=== PATIENT | male | born 1990 | race American Indian/Alaskan Native ===

== ENCOUNTER 2017-01-25 23:19 | Emergency (ER) | payer SELFPAY ==
[2017-01-26 00:25] LABS: Basophils % (Auto) 0.2 % (0.0-1.8); Eosinophils % (Auto) 0.7 % (0.0-4.3); Hematocrit 45.9 % (35.5-45.6); Hemoglobin 15.1 gm/dl (11.8-15.2); Mean Corpuscular HGB Conc 33 % (32-34); Mean Corpuscular Hemoglobin 29 pg (28-32); Mean Corpuscular Volume 89 fl (84-94); Platelet Count 192 K/mm3 (140-440); Red Blood Count 5.18 M/mm3 (3.65-5.03); Red Cell Distribution Width 13.8 % (13.2-15.2); White Blood Count 7.4 K/mm3 (4.5-11.0)
[2017-01-26 00:44] LABS: Anion Gap 20 mmol/L; BUN/Creatinine Ratio 9; Blood Urea Nitrogen 10 mg/dL (9-20); Calcium 9.4 mg/dL (8.4-10.2); Carbon Dioxide 22 mmol/L (22-30); Chloride 103.1 mmol/L (98-107); Glucose 117 mg/dL (75-100); Potassium 3.7 mmol/L (3.6-5.0); Sodium 141 mmol/L (137-145)
[2017-01-26 02:28] LABS: Urine Drugs of Abuse Note Disclamer
[2017-01-26 02:40] LABS: Bilirubin,Urine NEG (Negative); Blood,Urine NEG (Negative); Ketones,Urine TR mg/dL (Negative); Leukocyte Esterase,Urine NEG (Negative); Mucus,Urine 3+ /HPF; Nitrite,Urine NEG (Negative); Urobilinogen,Urine < 2.0 mg/dL (<2.0)
--- NOTE | 2017-01-26 04:04 | Emergency Department Report ---
ED General Adult HPI - General Chief complaint: Psych Stated complaint: MEDICAL CLEAR. Time Seen by Provider: 01/26/17 04:00 Source: patient Mode of arrival: Ambulatory Limitations: No Limitations - History of Present Illness Initial comments: Patient is a 27-year-old male that presents to emergency room with left shoulder pain for 4 days. Patient denies falling or trauma.. Patient states he cannot lift his arm above his head. Pain is worse with movement and better with rest. Pain with movement is is a 10 out of 10. Pain while resting is a 2 out of 10.. -: Sudden, days(s) (4 days ago) Location: upper extremity Radiation: non-radiation Severity scale (0 -10): 0 Quality: aching Consistency: constant Improves with: rest Worsens with: movement Associated Symptoms: denies other symptoms Treatments Prior to Arrival: none - Related Data Previous Rx's Medication Instructions Recorded Last Taken Type Ibuprofen [Motrin 800 MG tab] 800 mg PO Q8H PRN #14 tablet 12/31/13 Unknown Rx traMADol [Ultram 50 MG tab] 50 mg PO Q6HR PRN #14 tablet 01/26/17 Unknown Rx Allergies Allergy/AdvReac Type Severity Reaction Status Date / Time No Known Allergies Allergy Unverified 01/21/13 22:39 ED Review of Systems ROS: Stated complaint: MEDICAL CLEAR. Other details as noted in HPI Comment: All other systems reviewed and negative Constitutional: denies: chills, fever Eyes: denies: eye pain, eye discharge, vision change ENT: denies: ear pain, throat pain Respiratory: denies: cough, shortness of breath, wheezing Cardiovascular: denies: chest pain, palpitations Endocrine: no symptoms reported Gastrointestinal: denies: abdominal pain, nausea, diarrhea Genitourinary: denies: urgency, dysuria Musculoskeletal: denies: back pain, joint swelling, arthralgia Skin: denies: rash, lesions Neurological: denies: headache, weakness, paresthesias Psychiatric: depression. denies: anxiety Hematological/Lymphatic: denies: easy bleeding, easy bruising ED Past Medical Hx - Past Medical History Hx Hypertension: No Hx CVA: No Hx Heart Attack/AMI: No Hx Congestive Heart Failure: No Hx Diabetes: No Hx Deep Vein Thrombosis: No Hx Pulmonary Embolism: No Hx GERD: No Hx Liver Disease: No Hx Renal Disease: No Hx Sickle Cell Disease: No Hx Arthritis: No Hx Headaches / Migraines: No Hx Seizures: No Hx Kidney Stones: No Hx Psychiatric Treatment: No Hx Asthma: No Hx COPD: No Hx Tuberculosis: No Hx Dementia: No Hx HIV: No - Surgical History Hx Coronary Stent: No Hx Open Heart Surgery: No Hx Pacemaker: No Hx Internal Defibrillator: No Hx Cholecystectomy: No Hx Appendectomy: No Hx Breast Surgery: No Additional Surgical History: right thumb surgery - Family History Family history: no significant - Social History Smoking Status: Never Smoker Substance Use Type: Marijuana - Medications Home Medications: Home Medications Medication Instructions Recorded Confirmed Last Taken Type Ibuprofen [Motrin 800 MG tab] 800 mg PO Q8H PRN #14 tablet 12/31/13 Unknown Rx traMADol [Ultram 50 MG tab] 50 mg PO Q6HR PRN #14 tablet 01/26/17 Unknown Rx ED Physical Exam - General Limitations: No Limitations General appearance: alert, in no apparent distress - Head Head exam: Present: atraumatic, normocephalic - Eye Eye exam: Present: normal appearance - ENT ENT exam: Present: mucous membranes moist - Neck Neck exam: Present: normal inspection - Respiratory Respiratory exam: Present: normal lung sounds bilaterally. Absent: respiratory distress - Cardiovascular Cardiovascular Exam: Present: regular rate, normal rhythm. Absent: systolic murmur, diastolic murmur, rubs, gallop - GI/Abdominal GI/Abdominal exam: Present: soft, normal bowel sounds - Rectal Rectal exam: Present: deferred - Extremities Exam Extremities exam: Present: normal inspection, other (tenderness to palpation over anterior left shoulder. Decreased range of motion due to pain. ) - Back Exam Back exam: Present: normal inspection - Neurological Exam Neurological exam: Present: alert, oriented X3 - Psychiatric Psychiatric exam: Present: normal affect, normal mood - Skin Skin exam: Present: warm, dry, intact, normal color. Absent: rash ED Course Vital Signs 01/25/17 01/26/17 01/26/17 23:28 01:34 01:35 Temperature 98.4 F 98 F Pulse Rate 62 66 Respiratory 18 18 18 Rate Blood Pressure 110/74 Blood Pressure 112/70 [Left] O2 Sat by Pulse 99 100 100 Oximetry ED Medical Decision Making - Lab Data Result diagrams: 01/26/17 00:07 01/26/17 00:07 - Radiology Data Radiology results: report reviewed No acute findings on left shoulder x-ray - Differential Diagnosis SHOULDER SPRAIN. LIGAMENT INJURY Critical care attestation.: If time is entered above; I have spent that time in minutes in the direct care of this critically ill patient, excluding procedure time. ED Disposition Clinical Impression: Shoulder pain, left, Sprain of shoulder, left Disposition: TO HOME OR SELFCARE Is pt being admited?: No Does the pt Need Aspirin: No Condition: Stable Instructions: Shoulder Sprain (ED) Additional Instructions: Patient to follow up with primary care and orthopedic in 3 - 5 days. To return to ER if condition worsens. Patient take Tylenol and ibuprofen when necessary for pain. Rest and RICE Prescriptions: traMADol [Ultram 50 MG tab] 50 mg PO Q6HR PRN #14 tablet PRN Reason: Pain Referrals: COOPER MEIER MD [Primary Care Provider] - 3-5 Days Time of Disposition: 05:37
--- NOTE | 2017-01-26 05:05 | XRay Report ---
FINAL REPORT EXAM: XR SHOULDER 2+V LT HISTORY: pain COMPARISONS: None. FINDINGS: 3 views left shoulder Left glenohumeral joint appears intact. Acromioclavicular and coracoclavicular intervals are within normal limits. No displaced fracture. Incomplete evaluation of the adjacent left lung is unremarkable. IMPRESSION: Unremarkable left shoulder radiographs.
[2017-01-26] MEDS ORDERED: TORADOL IV ONE (05:39)
[2017-01-26 06:10] VITALS: BP 114/62
== END 2017-01-26 06:22 | disposition home or self-care (01) ==
LOC: ED 23:19
DX: S43.402A Unspecified sprain of left shoulder joint, initial encounter (principal); F12.10 Cannabis abuse, uncomplicated; X58.XXXA Exposure to other specified factors, initial encounter; Y93.89 Activity, other specified; Y92.89 Other specified places as the place of occurrence of the external cause; Y99.8 Other external cause status
CPT/HCPCS: 36415; 73030; 80048; 80307; 81001; 85025; 99284; G0480; J1885; 80320

== ENCOUNTER 2017-01-27 09:19 | Emergency (ER) | payer SELFPAY ==
[2017-01-27 11:00] VITALS: BP 138/92
== END 2017-01-27 10:10 | disposition left against medical advice (07) ==
LOC: ED 09:19
DX: Z53.21 Procedure and treatment not carried out due to patient leaving prior to being seen by health care provider (principal)

== ENCOUNTER 2017-10-10 23:01 | Emergency (ER) | payer MEDICAID ==
[2017-10-11 00:06] VITALS: BP 98/63
[2017-10-11] MEDS ORDERED: ZOFRAN ODT PO ONE (00:07)
[2017-10-11 00:38] LABS: BUN/Creatinine Ratio 8; Blood Urea Nitrogen 9 mg/dL (9-20); Calcium 8.5 mg/dL (8.4-10.2); Hemolysis Index 28
--- NOTE | 2017-10-11 00:54 | XRay Report ---
FINAL REPORT EXAM: XR HAND 2V RT HISTORY: right middle finger injury TECHNIQUE: AP and lateral views of the right hand were obtained. FINDINGS: There is fusiform soft tissue swelling around the proximal interphalangeal joint of the middle finger. On the lateral view there is a localized radiolucency along the ventral margin of the base of the middle phalanx suggesting possibility of a localized cortical fracture. This area is not well seen because of overlapping bones. There are no additional fractures. The wrist joint is well maintained. IMPRESSION: Fusiform soft tissue swelling around the proximal interphalangeal joint of the middle finger. Questionable incomplete cortical fracture along the ventral margin of the base of the middle phalanx of middle finger seen partially on the lateral view. Additional imaging with the fingers spread out is recommended for definitive evaluation.
--- NOTE | 2017-10-11 04:13 | Emergency Department Report ---
ED Upper Extremity Inj HPI - General Chief Complaint: Extremity Injury, Upper Stated Complaint: INJURED RT HAND, VOMITING X4 DAYS Time Seen by Provider: 10/11/17 04:08 Source: patient Mode of arrival: Ambulatory Limitations: No Limitations - History of Present Illness Initial Comments: 27-year-old -[place] male presents to the emergency room for complaint of right middle finger injury times one and a half weeks ago while playing football. Patient reports that he is able to move his finger without difficulties. He has been taken [id number] Tylenol and ibuprofen for pain management. Patient also complains of vomiting daily for 4 days. Patient denies any abdominal pain no diarrhea no nausea. MD Complaint: Injury to:: right, finger -: week(s) (1.5) Other Extremity Injury: Fingers: Right (middle) Severity scale (0 -10): 7 - Related Data Previous Rx's Medication Instructions Recorded Last Taken Type Ibuprofen [Motrin 800 MG tab] 800 mg PO Q8H PRN #14 tablet 12/31/13 Unknown Rx traMADol [Ultram 50 MG tab] 50 mg PO Q6HR PRN #14 tablet 01/26/17 Unknown Rx Ibuprofen [Motrin 600 MG tab] 600 mg PO Q8H PRN #30 tablet 10/11/17 Unknown Rx Allergies Allergy/AdvReac Type Severity Reaction Status Date / Time No Known Allergies Allergy Unverified 01/21/13 22:39 ED Review of Systems ROS: Stated complaint: INJURED RT HAND, VOMITING X4 DAYS Other details as noted in HPI Eyes: denies: eye pain, eye discharge, vision change ENT: denies: ear pain, throat pain Respiratory: denies: cough, shortness of breath, wheezing Cardiovascular: denies: chest pain, palpitations Gastrointestinal: vomiting (QD 4 days). denies: abdominal pain, diarrhea, constipation Genitourinary: denies: urgency, dysuria Musculoskeletal: joint swelling (right middle finger), arthralgia (right middle finger). denies: back pain Skin: denies: rash, lesions Neurological: denies: headache, weakness, paresthesias Psychiatric: denies: anxiety, depression Hematological/Lymphatic: denies: easy bleeding, easy bruising ED Past Medical Hx - Past Medical History Previous Medical History?: No Hx Hypertension: No Hx CVA: No Hx Heart Attack/AMI: No Hx Congestive Heart Failure: No Hx Diabetes: No Hx Deep Vein Thrombosis: No Hx Pulmonary Embolism: No Hx GERD: No Hx Liver Disease: No Hx Renal Disease: No Hx Sickle Cell Disease: No Hx Arthritis: No Hx Headaches / Migraines: No Hx Seizures: No Hx Kidney Stones: No Hx Psychiatric Treatment: No Hx Asthma: No Hx COPD: No Hx Tuberculosis: No Hx Dementia: No Hx HIV: No - Surgical History Hx Coronary Stent: No Hx Open Heart Surgery: No Hx Pacemaker: No Hx Internal Defibrillator: No Hx Cholecystectomy: No Hx Appendectomy: No Hx Breast Surgery: No Additional Surgical History: right thumb surgery - Social History Smoking Status: Never Smoker Substance Use Type: Marijuana - Medications Home Medications: Home Medications Medication Instructions Recorded Confirmed Last Taken Type Ibuprofen [Motrin 800 MG tab] 800 mg PO Q8H PRN #14 tablet 12/31/13 Unknown Rx traMADol [Ultram 50 MG tab] 50 mg PO Q6HR PRN #14 tablet 01/26/17 Unknown Rx Ibuprofen [Motrin 600 MG tab] 600 mg PO Q8H PRN #30 tablet 10/11/17 Unknown Rx ED Physical Exam - General Limitations: No Limitations General appearance: alert, in no apparent distress - Head Head exam: Present: atraumatic, normocephalic - Eye Eye exam: Present: EOMI - ENT ENT exam: Present: mucous membranes moist - Respiratory Respiratory exam: Present: normal lung sounds bilaterally. Absent: respiratory distress - Cardiovascular Cardiovascular Exam: Present: regular rate, normal rhythm. Absent: systolic murmur, diastolic murmur, rubs, gallop - GI/Abdominal GI/Abdominal exam: Present: soft, normal bowel sounds - Extremities Exam Extremities exam: Present: joint swelling (right third finger proximal joint) - Neurological Exam Neurological exam: Present: alert, oriented X3 - Psychiatric Psychiatric exam: Present: normal affect, normal mood - Skin Skin exam: Present: warm, dry, intact, normal color. Absent: rash ED Course Vital Signs 10/10/17 10/10/17 23:07 23:58 Temperature 98.7 F 98 F Pulse Rate 57 L 58 L Respiratory 16 18 Rate Blood Pressure 98/53 98/63 O2 Sat by Pulse 99 99 Oximetry ED Medical Decision Making - Lab Data Result diagrams: 10/11/17 00:10 - Radiology Data Radiology results: report reviewed, image reviewed FINAL REPORT EXAM: XR HAND 2V RT HISTORY: right middle finger injury TECHNIQUE: AP and lateral views of the right hand were obtained. FINDINGS: There is fusiform soft tissue swelling around the proximal interphalangeal joint of the middle finger. On the lateral view there is a localized radiolucency along the ventral margin of the base of the middle phalanx suggesting possibility of a localized cortical fracture. This area is not well seen because of overlapping bones. There are no additional fractures. The wrist joint is well maintained. IMPRESSION: Fusiform soft tissue swelling around the proximal interphalangeal joint of the middle finger. Questionable incomplete cortical fracture along the ventral margin of the base of the middle phalanx of middle finger seen partially on the lateral view. Additional imaging with the fingers spread out is recommended for definitive evaluation. Transcribed By: RB Dictated By: ZACHARY TILLEY MD Electronically Authenticated By: ZACHARY TILLEY MD Signed Date/Time: 10/11/1752 DD/ TD/TT: 10/11/1752 - Medical Decision Making Patient has been evaluated by this provider fast track. X-ray of finger shows there is questionable incomplete cortical fracture along the ventral margin of the base of the middle of the middle finger seen partially on the lateral view. We'll place patient on a finger splint and have a follow-up with orthopedics. CMP was within normal limits. Patient is to follow-up with her primary care provider if his symptoms persist or gets worse. Critical care attestation.: If time is entered above; I have spent that time in minutes in the direct care of this critically ill patient, excluding procedure time. ED Disposition Clinical Impression: Injury of right middle finger Qualifiers: Encounter type: initial encounter Qualified Code(s): S69.91XA - Unspecified injury of right wrist, hand and finger(s), initial encounter Disposition: -01 TO HOME OR SELFCARE Is pt being admited?: No Does the pt Need Aspirin: No Condition: Stable Instructions: Jammed Finger (ED), Finger Sprain (ED) Additional Instructions: Please take Motrin as needed for pain. It is very important for her to follow up with orthopedist I have listed their information below. Please follow-up with the primary care provider. Prescriptions: Ibuprofen [Motrin 600 MG tab] 600 mg PO Q8H PRN #30 tablet PRN Reason: Pain Referrals: PRIMARY CARE, [Primary Care Provider] - 3-5 Days [facility] [Provider Group] - 3-5 Days ZACHARY MADSEN MD [Staff Physician] - 3-5 Days Forms: Work/School Release Form(ED)
== END 2017-10-11 04:25 | disposition home or self-care (01) ==
LOC: ED 23:01
DX: S69.91XA Unspecified injury of right wrist, hand and finger(s), initial encounter (principal); R11.11 Vomiting without nausea; W21.01XA Struck by football, initial encounter; Y93.89 Activity, other specified; Y99.8 Other external cause status; Y92.89 Other specified places as the place of occurrence of the external cause
CPT/HCPCS: 36415; 80048; Q0162

== ENCOUNTER 2018-02-07 09:45 | Emergency (ER) | payer MEDICAID ==
[2018-02-07 09:50] VITALS: BP 126/78
--- NOTE | 2018-02-07 10:21 | Emergency Department Report ---
HPI - General Chief Complaint: Medical Clearance Time Seen by Provider: 02/07/18 10:11 - HPI HPI: 38-year-old -Polish male presents to the emergency department with complaint of lightheadedness/dizziness, some blurry vision and an episode where he coughed up a small amount of bloody phlegm. This all started around 4 AM this morning. He denies any chest pain but says that he does have some discomfort with respirations. He denies any tobacco or illicit drug use or abuse. No recent travel or sick contacts at home. He has not taken anything for his symptoms prior to arrival. He was dropped off to be seen today. ED Past Medical Hx - Past Medical History Hx Hypertension: No Hx CVA: No Hx Heart Attack/AMI: No Hx Congestive Heart Failure: No Hx Diabetes: No Hx Deep Vein Thrombosis: No Hx Pulmonary Embolism: No Hx GERD: No Hx Liver Disease: No Hx Renal Disease: No Hx Sickle Cell Disease: No Hx Arthritis: No Hx Headaches / Migraines: No Hx Seizures: No Hx Kidney Stones: No Hx Psychiatric Treatment: No Hx Asthma: No Hx COPD: No Hx Tuberculosis: No Hx Dementia: No Hx HIV: No - Surgical History Hx Coronary Stent: No Hx Open Heart Surgery: No Hx Pacemaker: No Hx Internal Defibrillator: No Hx Cholecystectomy: No Hx Appendectomy: No Hx Breast Surgery: No Additional Surgical History: right thumb surgery - Social History Smoking Status: Never Smoker Substance Use Type: Marijuana - Medications Home Medications: Home Medications Medication Instructions Recorded Confirmed Last Taken Type RX: Ibuprofen [Motrin 800 MG tab] 800 mg PO Q8H PRN #14 tablet 12/31/13 Unknown Rx RX: traMADol [Ultram 50 MG tab] 50 mg PO Q6HR PRN #14 tablet 01/26/17 Unknown Rx RX: Ibuprofen [Motrin 600 MG tab] 600 mg PO Q8H PRN #30 tablet 10/11/17 Unknown Rx Meclizine [Antivert] 25 mg PO TID PRN #12 tablet 02/07/18 Unknown Rx ED Review of Systems ROS: Stated complaint: VOMIT BLOOD/DIZZY Other details as noted in HPI Constitutional: chills. denies: fever Eyes: vision change. denies: eye pain ENT: denies: ear pain, throat pain Respiratory: cough. denies: wheezing Cardiovascular: denies: edema, syncope Gastrointestinal: denies: vomiting, diarrhea Genitourinary: denies: dysuria, discharge Musculoskeletal: myalgia. denies: back pain Skin: denies: rash, lesions Neurological: denies: headache, weakness, numbness Physical Exam - Physical Exam Vital Signs: Vital Signs 02/07/18 09:48 Temperature 98.1 F Pulse Rate 87 Respiratory 16 Rate Blood Pressure 126/78 O2 Sat by Pulse 100 Oximetry Physical Exam: GENERAL: The patient is well-developed well-nourished. HEENT: Normocephalic. Atraumatic. Patient has moist mucous membranes. EYES: Extraocular motions are intact. Pupils are equal and reactive to light bilaterally. No nystagmus. NECK: Supple. Trachea is midline. CHEST/LUNGS: Clear to auscultation. There is no respiratory distress noted. HEART/CARDIOVASCULAR: Regular. There is no tachycardia. There is no obvious murmur. ABDOMEN: Abdomen is soft, nontender. Patient has normal bowel sounds. There is no abdominal distention. SKIN: Skin is warm and dry. NEURO: The patient is awake, alert, and oriented. The patient is cooperative. The patient has no focal neurologic deficits. The patient has normal speech. Cranial nerves II through XII grossly intact. MUSCULOSKELETAL: There is no tenderness or deformity. There is no limitation range of motion. There is no evidence of acute injury. ED Course Vital Signs 02/07/18 09:48 Temperature 98.1 F Pulse Rate 87 Respiratory 16 Rate Blood Pressure 126/78 O2 Sat by Pulse 100 Oximetry ED Medical Decision Making - Lab Data Result diagrams: 02/07/18 10:36 02/07/18 10:36 - EKG Data -: EKG Interpreted by Me EKG shows normal: sinus rhythm, axis (left axis deviation), intervals, QRS complexes (left anterior fascicular block), ST-T waves (early repolarization) Rate: bradycardia (58 bpm) - EKG Data When compared to previous EKG there are: previous EKG unavailable Interpretation: other (sinus rhythm, left axis deviation, left anterior fascicular block, early repolarization) - Radiology Data Radiology results: image reviewed interpreted by me: Chest x-ray does not show any pneumothorax, pleural effusion, pneumonia or obvious focal consolidation. - Medical Decision Making Patient presents to the emergency department with complaint of some dizzine ss/lightheadedness, a cough where he had one episode of hemoptysis, and some alleged blurry vision. He does not have any focal, motor or sensory deficits and his cranial nerves are intact. EKG did not show any signs of ST elevation CT or dysrhythmia. Labs have been unremarkable including normal CBC, metabolic panel, a negative troponin and a negative d-dimer. He also is negative for influenza. Vital signs stable throughout his ED course. Patient was given a dose of Antivert. He was reevaluated multiple times over multiple hours and says he is feeling improved. He has been seen in the toilet around the emergency department and appears stable. He has been given some Antivert for home if the room spinning sensation returns. He has been given referrals for primary care. He will return to the ER with any worsening of his symptoms or any acute distress. - Differential Diagnosis influenza, viral syndrome, electrolyte abnormalities, dysrhythmia Critical Care Time: No Critical care attestation.: If time is entered above; I have spent that time in minutes in the direct care of this critically ill patient, excluding procedure time. ED Disposition Clinical Impression: Viral syndrome, Lightheaded, Cough Disposition: DC-01 TO HOME OR SELFCARE Is pt being admited?: No Condition: Stable Instructions: Upper Respiratory Infection (ED), Viral Syndrome (ED), Light headedness (ED) Additional Instructions: Please follow up with a primary care physician in the next few days. Return to the emergency Department with any worsening of your symptoms or any acute distress. Prescriptions: Meclizine [Antivert] 25 mg PO TID PRN #12 tablet PRN Reason: Vertigo Referrals: [facility] [Outside] - 2-3 Days JONNY OSHEA MD [Staff Physician] - 2-3 Days PRIMARY CAREMD [Primary Care Provider] - 2-3 Days Time of Disposition: 16:42
--- NOTE | 2018-02-07 10:49 | XRay Report ---
CHEST 2 VIEWS INDICATION: Cough. COMPARISON: 07/19/2009. FINDINGS: PA and lateral chest radiographs again demonstrate normal cardiomediastinal silhouette. Clear lungs. Intact bones. CONCLUSION: No acute disease in the chest. Thank you for the opportunity to participate in this patient's care.
[2018-02-07 10:52] LABS: Basophils % (Auto) 0.6 % (0.0-1.8); Eosinophils # (Auto) 0.1 K/mm3 (0.0-0.4); Eosinophils % (Auto) 1.5 % (0.0-4.3); Hematocrit 44.2 % (35.5-45.6); Hemoglobin 14.5 gm/dl (11.8-15.2); Lymphocytes % (Auto) 24.3 % (13.4-35.0); Mean Corpuscular HGB Conc 33 % (32-34); Mean Corpuscular Hemoglobin 30 pg (28-32); Mean Corpuscular Volume 91 fl (84-94); Monocytes # (Auto) 0.6 K/mm3 (0.0-0.8); Monocytes % (Auto) 7.8 % (0.0-7.3); Platelet Count 216 K/mm3 (140-440); Red Blood Count 4.84 M/mm3 (3.65-5.03); Red Cell Distribution Width 14.2 % (13.2-15.2)
[2018-02-07 11:12] LABS: BUN/Creatinine Ratio 8; Blood Urea Nitrogen 8 mg/dL (9-20); Calcium 8.5 mg/dL (8.4-10.2); Hemolysis Index 10
[2018-02-07] MEDS ORDERED: MOTRIN PO ONE (12:42)
[2018-02-07] MEDS ORDERED: ANTIVERT PO ONE (12:42)
== END 2018-02-07 19:02 | disposition home or self-care (01) ==
LOC: ED 09:45
DX: B34.9 Viral infection, unspecified (principal)
CPT/HCPCS: 36415; 71046; 80048; 84484; 85025; 85379; 87400; 93005; 93010; 99284

== ENCOUNTER 2018-04-17 04:14 | Emergency (ER) | payer MEDICAID ==
[2018-04-17 06:04] VITALS: BP 111/66
[2018-04-17 07:13] LABS: Basophils % (Auto) 0.6 % (0.0-1.8); Eosinophils # (Auto) 0.3 K/mm3 (0.0-0.4); Eosinophils % (Auto) 3.5 % (0.0-4.3); Hematocrit 39.1 % (35.5-45.6); Hemoglobin 13.2 gm/dl (11.8-15.2); Lymphocytes # (Auto) 2.5 K/mm3 (1.2-5.4); Lymphocytes % (Auto) 33.4 % (13.4-35.0); Mean Corpuscular HGB Conc 34 % (32-34); Mean Corpuscular Volume 91 fl (84-94); Monocytes # (Auto) 0.8 K/mm3 (0.0-0.8); Monocytes % (Auto) 10.8 % (0.0-7.3); Platelet Count 183 K/mm3 (140-440); Red Blood Count 4.28 M/mm3 (3.65-5.03); Red Cell Distribution Width 13.9 % (13.2-15.2)
[2018-04-17 07:23] LABS: INR 0.88 (0.87-1.13)
[2018-04-17 07:24] LABS: Partial Thromboplastin Time 24.4 Sec. (24.2-36.6); Thrombin Time 16.3 Sec. (15.1-19.6)
[2018-04-17 07:31] LABS: Creatine Kinase MB 2.3 ng/mL (0.0-4.0)
--- NOTE | 2018-04-17 07:31 | Cat Scan Report ---
CT HEAD WITHOUT CONTRAST: HISTORY: Stroke symptoms. TECHNIQUE: Sequential 2.5mm CT images. COMPARISON: none. FINDINGS: Cerebral Parenchyma: Within normal limits. Cerebellum: Within normal limits. Brainstem: Within normal limits. Ventricles: Normal. Sella: Normal. Extra-axial spaces: Normal. Basal Cisterns: Normal. Intracranial Hemorrhage: None. Midline Shift: None. Calvarium: Normal. Sinuses: Normal. Mastoid Air Cells: Normal. Visualized Orbits: Normal. IMPRESSION: Cranial CT scan within normal limits.
[2018-04-17 07:34] LABS: BUN/Creatinine Ratio 10; Blood Urea Nitrogen 10 mg/dL (9-20); Calcium 8.2 mg/dL (8.4-10.2); Hemolysis Index 17
[2018-04-17 08:32] LABS: Bilirubin,Urine NEG (Negative); Blood,Urine NEG (Negative); Color,Urine Yellow (Yellow); Mucus,Urine FEW /HPF; Protein,Urine <15 mg/dL mg/dL (Negative); Urobilinogen,Urine < 2.0 mg/dL (<2.0)
--- NOTE | 2018-04-17 08:39 | Emergency Department Report ---
ED General Adult HPI - General Chief complaint: Neuro Symptoms/Deficit Stated complaint: PAIN/NUMBNESS ON RIGHT SIDE Time Seen by Provider: 04/17/18 06:35 Source: patient Mode of arrival: Ambulatory Limitations: No Limitations - History of Present Illness Initial comments: This is a 28-year-old male who largely would like to sleep here in the emergency department. He is however easily arousable. He told the nurse at triage she had numbness of his entire right side. On examination he was not very responsive to questioning. He initially said that it was a difference in sensation in his leg but not his arm face. Later upon reexamination he told me that he needed something for pain involving both his thighs. However this pain was not affecting the patient's ability to take a nap. Patient denies any thigh or leg swelling. He denies any recent travel. He's had no respiratory symptoms. -: Gradual Location: left, right, lower extremity Radiation: non-radiation Severity scale (0 -10): 0 Quality: aching Consistency: intermittent Improves with: none Worsens with: none Associated Symptoms: denies other symptoms Treatments Prior to Arrival: none - Related Data Previous Rx's Medication Instructions Recorded Last Taken Type Ibuprofen [Motrin 800 MG tab] 800 mg PO Q8H PRN #14 tablet 12/31/13 Unknown Rx traMADol [Ultram 50 MG tab] 50 mg PO Q6HR PRN #14 tablet 01/26/17 Unknown Rx Ibuprofen [Motrin 600 MG tab] 600 mg PO Q8H PRN #30 tablet 10/11/17 Unknown Rx Meclizine [Antivert] 25 mg PO TID PRN #12 tablet 02/07/18 Unknown Rx Naproxen [Naprosyn] 500 mg PO Q12H PRN #10 tablet 04/17/18 Unknown Rx Allergies Allergy/AdvReac Type Severity Reaction Status Date / Time shellfish derived Allergy Swelling Verified 04/17/18 04:20 ED Review of Systems ROS: Stated complaint: PAIN/NUMBNESS ON RIGHT SIDE Other details as noted in HPI Constitutional: denies: chills, fever Eyes: denies: eye pain, eye discharge, vision change ENT: denies: ear pain, throat pain Respiratory: denies: cough, shortness of breath, wheezing Cardiovascular: denies: chest pain, palpitations Endocrine: no symptoms reported Gastrointestinal: denies: abdominal pain, nausea, diarrhea Genitourinary: denies: urgency, dysuria Musculoskeletal: as per HPI. denies: back pain, joint swelling, arthralgia Skin: denies: rash, lesions Neurological: denies: headache, weakness, paresthesias Psychiatric: denies: anxiety, depression Hematological/Lymphatic: denies: easy bleeding, easy bruising ED Past Medical Hx - Past Medical History Previous Medical History?: No Hx Hypertension: No Hx CVA: No Hx Heart Attack/AMI: No Hx Congestive Heart Failure: No Hx Diabetes: No Hx Deep Vein Thrombosis: No Hx Pulmonary Embolism: No Hx GERD: No Hx Liver Disease: No Hx Renal Disease: No Hx Sickle Cell Disease: No Hx Arthritis: No Hx Headaches / Migraines: No Hx Seizures: No Hx Kidney Stones: No Hx Psychiatric Treatment: No Hx Asthma: No Hx COPD: No Hx Tuberculosis: No Hx Dementia: No Hx HIV: No - Surgical History Past Surgical History?: Yes Hx Coronary Stent: No Hx Open Heart Surgery: No Hx Pacemaker: No Hx Internal Defibrillator: No Hx Cholecystectomy: No Hx Appendectomy: No Hx Breast Surgery: No Additional Surgical History: right thumb surgery - Social History Smoking Status: Never Smoker Substance Use Type: None - Medications Home Medications: Home Medications Medication Instructions Recorded Confirmed Last Taken Type Ibuprofen [Motrin 800 MG tab] 800 mg PO Q8H PRN #14 tablet 12/31/13 Unknown Rx traMADol [Ultram 50 MG tab] 50 mg PO Q6HR PRN #14 tablet 01/26/17 Unknown Rx Ibuprofen [Motrin 600 MG tab] 600 mg PO Q8H PRN #30 tablet 10/11/17 Unknown Rx Meclizine [Antivert] 25 mg PO TID PRN #12 tablet 02/07/18 Unknown Rx Naproxen [Naprosyn] 500 mg PO Q12H PRN #10 tablet 04/17/18 Unknown Rx ED Physical Exam - General Limitations: No Limitations General appearance: alert, in no apparent distress - Head Head exam: Present: atraumatic, normocephalic - Eye Eye exam: Present: normal appearance, PERRL. Absent: scleral icterus - ENT ENT exam: Present: mucous membranes moist - Neck Neck exam: Present: normal inspection - Respiratory Respiratory exam: Present: normal lung sounds bilaterally. Absent: respiratory distress - Cardiovascular Cardiovascular Exam: Present: regular rate, normal rhythm. Absent: systolic murmur, diastolic murmur, rubs, gallop - GI/Abdominal GI/Abdominal exam: Present: soft, normal bowel sounds. Absent: distended, tenderness, guarding, rebound - Rectal Rectal exam: Present: deferred - Extremities Exam Extremities exam: Present: normal inspection - Back Exam Back exam: Present: normal inspection. Absent: CVA tenderness (R), CVA tenderness (L), muscle spasm, paraspinal tenderness - Neurological Exam Neurological exam: Present: alert, oriented X3, CN II-XII intact. Absent: motor sensory deficit - Psychiatric Psychiatric exam: Present: normal affect, flat affect - Skin Skin exam: Present: warm, dry, intact, normal color. Absent: rash ED Course Vital Signs 04/17/18 04/17/18 04/17/18 04:15 04:39 05:00 Temperature 97.4 F L 98.3 F Pulse Rate 65 64 Respiratory 18 16 Rate Blood Pressure 114/73 100/64 Blood Pressure 107/64 [Left] O2 Sat by Pulse 100 100 98 Oximetry 04/17/18 06:00 Temperature Pulse Rate Respiratory Rate Blood Pressure 111/66 Blood Pressure [Left] O2 Sat by Pulse Oximetry - Reevaluation(s) Reevaluation #1: The patient has already forgotten about his symptoms of numbness apparently. He asked for something for bilateral thigh pain. Hhe was appropriate for outpatient disposition. NIH stroke score was 0. 04/17/18 09:05 04/17/18 09:18 04/17/18 09:19 ED Medical Decision Making - Lab Data Result diagrams: 04/17/18 06:51 04/17/18 06:51 Laboratory Results - last 24 hr 04/17/18 04/17/18 04/17/18 06:51 06:51 06:51 WBC 7.4 RBC 4.28 Hgb 13.2 Hct 39.1 MCV 91 MCH 31 MCHC 34 RDW 13.9 Plt Count 183 Lymph % (Auto) 33.4 [place] % (Auto) 10.8 H Eos % (Auto) 3.5 Baso % (Auto) 0.6 Lymph # 2.5 [place] # 0.8 Eos # 0.3 Baso # 0.0 Seg Neutrophils % 51.7 Seg Neutrophils # 3.8 PT 12.5 INR 0.88 APTT 24.4 Thrombin Time 16.3 Sodium 143 Potassium 3.9 Chloride 108.8 H Carbon Dioxide 26 Anion Gap 12 BUN 10 Creatinine 1.0 Estimated GFR > 60 BUN/Creatinine Ratio 10 Glucose 98 Calcium 8.2 L Total Creatine Kinase 305 H CK-MB (CK-2) 2.3 CK-MB (CK-2) Rel Index 0.7 Troponin T < 0.010 Urine Color Urine Turbidity Urine pH Ur Specific [place] Urine Protein Urine Glucose (UA) Urine Ketones Urine Blood Urine Nitrite Urine Bilirubin Urine Urobilinogen Ur Leukocyte Esterase Urine WBC (Auto) Urine RBC (Auto) U Epithel Cells (Auto) Urine Mucus 04/17/18 08:08 WBC RBC Hgb Hct MCV MCH MCHC RDW Plt Count Lymph % (Auto) [place] % (Auto) Eos % (Auto) Baso % (Auto) Lymph # [place] # Eos # Baso # Seg Neutrophils % Seg Neutrophils # PT INR APTT Thrombin Time Sodium Potassium Chloride Carbon Dioxide Anion Gap BUN Creatinine Estimated GFR BUN/Creatinine Ratio Glucose Calcium Total Creatine Kinase CK-MB (CK-2) CK-MB (CK-2) Rel Index Troponin T Urine Color Yellow Urine Turbidity Clear Urine pH 6.0 Ur Specific [place] 1.028 Urine Protein <15 mg/dl Urine Glucose (UA) Neg Urine Ketones Neg Urine Blood Neg Urine Nitrite Neg Urine Bilirubin Neg Urine Urobilinogen < 2.0 Ur Leukocyte Esterase Neg Urine WBC (Auto) 4.0 Urine RBC (Auto) 1.0 U Epithel Cells (Auto) < 1.0 Urine Mucus Few - EKG Data -: EKG Interpreted by Nv EKG shows normal: sinus rhythm, axis (left axis deviation/left anterior fascicular block), intervals, QRS complexes, ST-T waves Rate: bradycardia - EKG Data Interpretation: nonspecific ST-T wave marbin - Radiology Data Radiology results: report reviewed (CT of the head normal) CT the head normal Critical care attestation.: If time is entered above; I have spent that time in minutes in the direct care of this critically ill patient, excluding procedure time. ED Disposition Clinical Impression: Paresthesia, Musculoskeletal pain Disposition: DC-01 TO HOME OR SELFCARE Is pt being admited?: No Does the pt Need Aspirin: No Condition: Stable Instructions: Paresthesia (ED), Musculoskeletal Pain (ED) Additional Instructions: Return any acute change or worsening. Follow up in the primary care setting. Prescriptions: Naproxen [Naprosyn] 500 mg PO Q12H PRN #10 tablet PRN Reason: Pain , Severe (7-10) Referrals: ERIKA ALONSO MD [Primary Care Provider] - 3-5 Days [facility] [Provider Group] - 2-3 Days Time of Disposition: 09:20
[2018-04-17 08:48] LABS: Amphetamine Screen,Urine PRESUMPTIVE NEGATIVE; Benzodiazepines Screen,Urine PRESUMPTIVE NEGATIVE; Cocaine Screen,Urine PRESUMPTIVE NEGATIVE; Methadone Screen,Urine PRESUMPTIVE NEGATIVE; Opiate Screen,Urine PRESUMPTIVE NEGATIVE
[2018-04-17 09:04] LABS: Cannabinoid Screen,Urine PRESUMPTIVE POSITIVE
[2018-04-17] MEDS ORDERED: NAPROSYN PO ONE (09:23)
[2018-04-17] MEDS ORDERED: IBUPROFEN PO ONE (09:28)
[2018-04-17] MEDS ORDERED: IBUPROFEN ONE (09:29)
== END 2018-04-17 09:30 | disposition home or self-care (01) ==
LOC: ED 04:14
DX: M79.652 Pain in left thigh (principal); M79.651 Pain in right thigh; R20.0 Anesthesia of skin; Z91.013 Allergy to seafood
CPT/HCPCS: 36415; 70450; 80048; 80307; 81001; 82550; 82553; 84484; 85025; 85610; 85670; 85730; 93005; 93010; 99285

== ENCOUNTER 2018-04-18 05:28 | Emergency (ER) | payer MEDICAID ==
[2018-04-18] MEDS ORDERED: TYLENOL ONE (07:13)
[2018-04-18] MEDS ORDERED: TYLENOL PO ONE (07:13)
[2018-04-18 07:49] VITALS: BP 123/81
--- NOTE | 2018-04-18 08:52 | Emergency Department Report ---
ED General Adult HPI - General Chief complaint: Extremity Injury, Lower Time Seen by Provider: 04/18/18 08:32 Source: patient Mode of arrival: Ambulatory Limitations: No Limitations - History of Present Illness Initial comments: This is a 28-year-old male who is presenting to the emergency department on 2 consecutive days. He was seen by myself yesterday and found to essentially have symptoms that were largely somatic in nature. Although he denies a psychiatric history, the record indicates that he has been here for psychiatric clearance in the past. He denies taking any medication for those indications. Today he presents with bilateral side pain. He denies injury. He states that his legs were "locking up". He is fully ambulatory. He is comfortable and without any distress at the time of my evaluation. He states that he would like x-rays done of his legs although there is no history of injury. -: hour(s) Location: lower extremity Severity scale (0 -10): 2 Quality: aching Consistency: intermittent Improves with: none Worsens with: none Associated Symptoms: denies other symptoms - Related Data Previous Rx's Medication Instructions Recorded Last Taken Type Ibuprofen [Motrin 800 MG tab] 800 mg PO Q8H PRN #14 tablet 12/31/13 Unknown Rx traMADol [Ultram 50 MG tab] 50 mg PO Q6HR PRN #14 tablet 01/26/17 Unknown Rx Ibuprofen [Motrin 600 MG tab] 600 mg PO Q8H PRN #30 tablet 10/11/17 Unknown Rx Meclizine [Antivert] 25 mg PO TID PRN #12 tablet 02/07/18 Unknown Rx Naproxen [Naprosyn] 500 mg PO Q12H PRN #10 tablet 04/17/18 Unknown Rx Cyclobenzaprine HCl [Flexeril 5 MG 5 mg PO TID #7 tab 04/18/18 Unknown Rx TAB] Allergies Allergy/AdvReac Type Severity Reaction Status Date / Time shellfish derived Allergy Swelling Verified 04/17/18 04:20 ED Review of Systems ROS: Stated complaint: Other details as noted in HPI Constitutional: denies: chills, fever Eyes: denies: eye pain, eye discharge, vision change ENT: denies: ear pain, throat pain Respiratory: denies: cough, shortness of breath, wheezing Cardiovascular: denies: chest pain, palpitations Endocrine: no symptoms reported Gastrointestinal: denies: abdominal pain, nausea, diarrhea Genitourinary: denies: urgency, dysuria Musculoskeletal: as per HPI, myalgia. denies: back pain, joint swelling, arthralgia Skin: denies: rash, lesions Neurological: denies: headache, weakness, paresthesias Psychiatric: denies: anxiety, depression Hematological/Lymphatic: denies: easy bleeding, easy bruising ED Past Medical Hx - Past Medical History Previous Medical History?: No Hx Hypertension: No Hx CVA: No Hx Heart Attack/AMI: No Hx Congestive Heart Failure: No Hx Diabetes: No Hx Deep Vein Thrombosis: No Hx Pulmonary Embolism: No Hx GERD: No Hx Liver Disease: No Hx Renal Disease: No Hx Sickle Cell Disease: No Hx Arthritis: No Hx Headaches / Migraines: No Hx Seizures: No Hx Kidney Stones: No Hx Psychiatric Treatment: No Hx Asthma: No Hx COPD: No Hx Tuberculosis: No Hx Dementia: No Hx HIV: No - Surgical History Past Surgical History?: Yes Hx Coronary Stent: No Hx Open Heart Surgery: No Hx Pacemaker: No Hx Internal Defibrillator: No Hx Cholecystectomy: No Hx Appendectomy: No Hx Breast Surgery: No Additional Surgical History: right thumb surgery - Social History Smoking Status: Never Smoker Substance Use Type: None - Medications Home Medications: Home Medications Medication Instructions Recorded Confirmed Last Taken Type Ibuprofen [Motrin 800 MG tab] 800 mg PO Q8H PRN #14 tablet 12/31/13 Unknown Rx traMADol [Ultram 50 MG tab] 50 mg PO Q6HR PRN #14 tablet 01/26/17 Unknown Rx Ibuprofen [Motrin 600 MG tab] 600 mg PO Q8H PRN #30 tablet 10/11/17 Unknown Rx Meclizine [Antivert] 25 mg PO TID PRN #12 tablet 02/07/18 Unknown Rx Naproxen [Naprosyn] 500 mg PO Q12H PRN #10 tablet 04/17/18 Unknown Rx Cyclobenzaprine HCl [Flexeril 5 MG 5 mg PO TID #7 tab 04/18/18 Unknown Rx TAB] ED Physical Exam - General Limitations: No Limitations General appearance: alert, in no apparent distress - Head Head exam: Present: atraumatic, normocephalic - Eye Eye exam: Present: normal appearance. Absent: scleral icterus - ENT ENT exam: Present: mucous membranes moist - Neck Neck exam: Present: normal inspection - Respiratory Respiratory exam: Present: normal lung sounds bilaterally. Absent: respiratory distress - Cardiovascular Cardiovascular Exam: Present: regular rate, normal rhythm. Absent: systolic murmur, diastolic murmur, rubs, gallop - GI/Abdominal GI/Abdominal exam: Present: soft, normal bowel sounds. Absent: distended, tenderness, guarding, rebound, rigid - Rectal Rectal exam: Present: deferred - Extremities Exam Extremities exam: Present: normal inspection, full ROM, normal capillary refill, other (neurovascular exam is intact dorsalis pedis posterior tibial pulses are normal). Absent: tenderness, pedal edema, joint swelling, calf tenderness - Back Exam Back exam: Present: normal inspection - Neurological Exam Neurological exam: Present: alert, oriented X3, CN II-XII intact. Absent: motor sensory deficit - Psychiatric Psychiatric exam: Present: normal affect, normal mood - Skin Skin exam: Present: warm, dry, intact, normal color. Absent: rash ED Course Vital Signs 04/18/18 04/18/18 05:30 07:44 Temperature 97.8 F 98 F Pulse Rate 64 65 Respiratory 16 17 Rate Blood Pressure 123/66 [Left] Blood Pressure 123/81 [Right] O2 Sat by Pulse 100 100 Oximetry - Reevaluation(s) Reevaluation #1: Do not recommend any further medical screening of this patient at this time. Again he is presenting with apparently somatic symptoms or disproportionate symptoms not indicative of an emergency medical condition. I've advised him that imaging is really not indicated for this type of complaint. I believe he is suffering from somatic disorder as this is the second day in a row that he has presented with very atypical symptoms. He doesn't meet 1013 criteria and is not receptive to the possibility of somatic disorder or mental health issue. He will be given a prescription for Flexeril and referred to primary care once again. 04/18/18 08:50 Critical care attestation.: If time is entered above; I have spent that time in minutes in the direct care of this critically ill patient, excluding procedure time. ED Disposition Clinical Impression: Musculoskeletal pain Disposition: DC-01 TO HOME OR SELFCARE Is pt being admited?: No Does the pt Need Aspirin: No Condition: Stable Instructions: Muscle Spasm (ED) Additional Instructions: Follow-up with primary care provider is again recommended. Return any acute change or worsening symptoms as needed. Prescriptions: Cyclobenzaprine HCl [Flexeril 5 MG TAB] 5 mg PO TID #7 tab Referrals: ERIKA ALONSO MD [Primary Care Provider] - 3-5 Days [facility] [Provider Group] - 24 Hours Time of Disposition: 08:54
== END 2018-04-18 10:07 | disposition home or self-care (01) ==
LOC: ED 05:28
DX: M79.661 Pain in right lower leg (principal); M79.662 Pain in left lower leg; Z91.013 Allergy to seafood
CPT/HCPCS: 99282

== ENCOUNTER 2018-04-30 07:04 | Emergency (ER) | payer MEDICAID ==
[2018-04-30 07:32] VITALS: BP 107/69
--- NOTE | 2018-04-30 08:29 | Emergency Department Report ---
ED Headache HPI - General Chief Complaint: Dizziness Stated Complaint: DIZZINESS AND HEADACHES Time Seen by Provider: 04/30/18 08:07 Source: patient - History of Present Illness Initial Comments: 28-year-old male presents to ED with complaint of headache, dizziness, left arm numbness onset while at work at approximately 1:30 AM. Patient works in construction. Patient states headache is frontal and posterior, throbbing in nature. Patient states he took Tylenol without relief. Nursing triage note states patient has "chronic" headaches, however patient denies. He states he does not get headaches often. Patient states he thought chronic meant the severity of the headache, states the headache is "real bad." Patient denies nausea, vomiting, fever, recent URI symptoms. Patient reports associated dizziness. Patient also states that he is experiencing intermittent left arm tingling for the last week. Patient denies any symptoms in the left leg, or other extremities. The patient denies weakness in the extremities, denies slurred speech, denies facial droop. Patient does report having intermittent neck pain for "a while." Patient denies any injuries such as MVC or fall. Patient is unsure if the neck pain radiates into the upper extremity. Denies neck pain at this time. Timing/Duration: other (7 hrs ago) Quality: severe Recent Head Trauma: no recent headache/trauma Associated Symptoms: denies: fever/chills, nausea/vomiting, numbness in legs/feet, sinus infection, stiff neck, vision changes Allergies/Adverse Reactions: Allergies shellfish derived Allergy (Verified 04/17/18 04:20) Swelling Home Medications: Ambulatory Orders Ibuprofen [Motrin 800 MG tab] 800 mg PO Q8H PRN #14 tablet 12/31/13 traMADol [Ultram 50 MG tab] 50 mg PO Q6HR PRN #14 tablet 01/26/17 Ibuprofen [Motrin 600 MG tab] 600 mg PO Q8H PRN #30 tablet 10/11/17 Meclizine [Antivert] 25 mg PO TID PRN #12 tablet 02/07/18 Naproxen [Naprosyn] 500 mg PO Q12H PRN #10 tablet 04/17/18 Cyclobenzaprine HCl [Flexeril 5 MG TAB] 5 mg PO TID #7 tab 04/18/18 Butalb/Acetamin/Caff 50-325-40 [Fioricet] 1 tab PO Q6HR PRN #10 tab 04/30/18 methOCARBAMOL [Robaxin TAB] 500 mg PO Q8HR PRN #10 tablet 04/30/18 ED Review of Systems ROS: Stated complaint: DIZZINESS AND HEADACHES Other details as noted in HPI Comment: All other systems reviewed and negative Constitutional: denies: chills, fever Respiratory: denies: shortness of breath Cardiovascular: denies: chest pain Gastrointestinal: denies: nausea, vomiting Musculoskeletal: other (reports intermittent neck pain) Neurological: headache, paresthesias ED Past Medical Hx - Past Medical History Hx Hypertension: No Hx CVA: No Hx Heart Attack/AMI: No Hx Congestive Heart Failure: No Hx Diabetes: No Hx Deep Vein Thrombosis: No Hx Pulmonary Embolism: No Hx GERD: No Hx Liver Disease: No Hx Renal Disease: No Hx Sickle Cell Disease: No Hx Arthritis: No Hx Headaches / Migraines: No Hx Seizures: No Hx Kidney Stones: No Hx Psychiatric Treatment: No Hx Asthma: No Hx COPD: No Hx Tuberculosis: No Hx Dementia: No Hx HIV: No - Surgical History Hx Coronary Stent: No Hx Open Heart Surgery: No Hx Pacemaker: No Hx Internal Defibrillator: No Hx Cholecystectomy: No Hx Appendectomy: No Hx Breast Surgery: No Additional Surgical History: right thumb surgery - Social History Smoking Status: Never Smoker Substance Use Type: None - Medications Home Medications: Home Medications Medication Instructions Recorded Confirmed Last Taken Type Ibuprofen [Motrin 800 MG tab] 800 mg PO Q8H PRN #14 tablet 12/31/13 Unknown Rx traMADol [Ultram 50 MG tab] 50 mg PO Q6HR PRN #14 tablet 01/26/17 Unknown Rx Ibuprofen [Motrin 600 MG tab] 600 mg PO Q8H PRN #30 tablet 10/11/17 Unknown Rx Meclizine [Antivert] 25 mg PO TID PRN #12 tablet 02/07/18 Unknown Rx Naproxen [Naprosyn] 500 mg PO Q12H PRN #10 tablet 04/17/18 Unknown Rx Cyclobenzaprine HCl [Flexeril 5 MG 5 mg PO TID #7 tab 04/18/18 Unknown Rx TAB] Butalb/Acetamin/Caff 50-325-40 1 tab PO Q6HR PRN #10 tab 04/30/18 Unknown Rx [Fioricet] methOCARBAMOL [Robaxin TAB] 500 mg PO Q8HR PRN #10 tablet 04/30/18 Unknown Rx ED Physical Exam - General Limitations: No Limitations General appearance: alert, in no apparent distress, other (non-toxic appearing, asleep on stretcher, easily arousable) - Head Head exam: Present: atraumatic, normocephalic - Eye Eye exam: Present: normal appearance, PERRL, EOMI - ENT ENT exam: Present: mucous membranes moist - Neck Neck exam: Present: normal inspection. Absent: tenderness, meningismus - Respiratory Respiratory exam: Present: normal lung sounds bilaterally. Absent: respiratory distress - Cardiovascular Cardiovascular Exam: Present: normal rhythm, bradycardia - GI/Abdominal GI/Abdominal exam: Present: soft. Absent: distended - Extremities Exam Extremities exam: Present: normal inspection, full ROM - Neurological Exam Neurological exam: Present: alert, oriented X3, CN II-XII intact. Absent: motor sensory deficit - Psychiatric Psychiatric exam: Present: normal affect, normal mood - Skin Skin exam: Present: warm, dry, intact, normal color. Absent: rash ED Course Vital Signs 04/30/18 07:30 Temperature 97.6 F Pulse Rate 58 L Respiratory 18 Rate Blood Pressure 107/69 [Left] O2 Sat by Pulse 100 Oximetry ED Medical Decision Making - Medical Decision Making Patient was seen last week for right arm numbness, despite the fact that he reported to me that this is the first time anything like this has ever happened. Patient had CT head done at that time that was normal. I highly doubt there will be any new finding on head CT, such as intracranial hemorrhage, to warrant rescanning this patient. Patient has normal neuro exam at this time, is resting comfortably, does not actually appear to be in any pain whatsoever. Symptoms may possibly be due to cervical radiculopathy, as patient does report neck pain for some time now, and is having intermittent bilateral upper extremity paresthesias. Will discharge at this time. Outpatient follow-up advised. Return precautions given. Critical care attestation.: If time is entered above; I have spent that time in minutes in the direct care of this critically ill patient, excluding procedure time. ED Disposition Clinical Impression: Cervical radiculopathy Disposition: TO HOME OR SELFCARE Is pt being admited?: No Condition: Stable Instructions: Cervical Radiculopathy (ED) Prescriptions: Butalb/Acetamin/Caff 50-325-40 [Fioricet] 1 tab PO Q6HR PRN #10 tab PRN Reason: Headache methOCARBAMOL [Robaxin TAB] 500 mg PO Q8HR PRN #10 tablet PRN Reason: Muscle Spasm Referrals: RONY ELDRIDGE MD [Primary Care Provider] - 3-5 Days Time of Disposition: 08:40
[2018-04-30] MEDS ORDERED: FIORICET PO ONE (08:36)
== END 2018-04-30 08:55 | disposition home or self-care (01) ==
LOC: ED 07:04
DX: M54.12 Radiculopathy, cervical region (principal); Z79.899 Other long term (current) drug therapy
CPT/HCPCS: 99282

== ENCOUNTER 2018-05-15 03:19 | Emergency (ER) | payer MEDICAID ==
--- NOTE | 2018-05-15 04:12 | XRay Report ---
PROCEDURE: XR CHEST 1V AP TECHNIQUE: A single view of the chest was obtained. HISTORY: Chest Pain COMPARISONS: 02/07/2018 FINDINGS: The heart size and vascularity appear normal. The lungs are clear. Pleural fluid is not seen. The bon es and soft tissues do not show any acute changes. IMPRESSION: Within normal limits. This document is electronically signed by Paulo Tompkins MD., May 15 2018 04:10:39 AM ET
[2018-05-15] MEDS ORDERED: TYLENOL PO ONE (04:49)
--- NOTE | 2018-05-15 09:23 | Emergency Department Report ---
ED General Adult HPI - General Chief complaint: Dyspnea/Respdistress Stated complaint: CHEST PAIN/YASEMIN/SORES ON BOTH FEET Time Seen by Provider: 05/15/18 08:30 Source: patient Mode of arrival: Ambulatory Limitations: No Limitations - History of Present Illness Initial comments: Patient is a 28-year-old male who is presenting with 2 days of chest discomfort. 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 Patient's had a minimal cough but states his main complaint is that he has pain when he takes a deep breath. Patient states that he has some mild shortness of breath as well. Patient also states that he has pain when he does cough when he moves. Patient's social breath is not worse with exertion was more with twisting and lifting. Patient also states that for the past week he has had some peeling to his bilateral feet and stabbing burning sensation. Severity scale (0 -10): 10 - Related Data Previous Rx's Medication Instructions Recorded Last Taken Type Clotrimazole [Clotrimazole AF] 1 applic TP BID #30 cream..g. 05/15/18 Unknown Rx Ibuprofen [Ibu] 800 mg PO Q8H PRN #20 tablet 05/15/18 Unknown Rx methOCARBAMOL [Robaxin TAB] 500 mg PO Q6H PRN #14 tablet 05/15/18 Unknown Rx traMADol [Ultram] 50 mg PO Q6HR PRN #12 tablet 05/15/18 Unknown Rx Allergies Allergy/AdvReac Type Severity Reaction Status Date / Time shellfish derived Allergy Swelling Verified 04/17/18 04:20 ED Review of Systems ROS: Stated complaint: CHEST PAIN/YASEMIN/SORES ON BOTH FEET Other details as noted in HPI Comment: All other systems reviewed and negative ED Past Medical Hx - Past Medical History Previous Medical History?: No Hx Hypertension: No Hx CVA: No Hx Heart Attack/AMI: No Hx Congestive Heart Failure: No Hx Diabetes: No Hx Deep Vein Thrombosis: No Hx Pulmonary Embolism: No Hx GERD: No Hx Liver Disease: No Hx Renal Disease: No Hx Sickle Cell Disease: No Hx Arthritis: No Hx Headaches / Migraines: No Hx Seizures: No Hx Kidney Stones: No Hx Psychiatric Treatment: No Hx Asthma: No Hx COPD: No Hx Tuberculosis: No Hx Dementia: No Hx HIV: No - Surgical History Past Surgical History?: Yes Hx Coronary Stent: No Hx Open Heart Surgery: No Hx Pacemaker: No Hx Internal Defibrillator: No Hx Cholecystectomy: No Hx Appendectomy: No Hx Breast Surgery: No Additional Surgical History: right thumb surgery - Social History Smoking Status: Never Smoker Substance Use Type: None - Medications Home Medications: Home Medications Medication Instructions Recorded Confirmed Last Taken Type Clotrimazole [Clotrimazole AF] 1 applic TP BID #30 cream..g. 05/15/18 Unknown Rx Ibuprofen [Ibu] 800 mg PO Q8H PRN #20 tablet 05/15/18 Unknown Rx methOCARBAMOL [Robaxin TAB] 500 mg PO Q6H PRN #14 tablet 05/15/18 Unknown Rx traMADol [Ultram] 50 mg PO Q6HR PRN #12 tablet 05/15/18 Unknown Rx ED Physical Exam - General Limitations: No Limitations General appearance: alert, in no apparent distress - Head Head exam: Present: atraumatic, normocephalic - Eye Eye exam: Present: normal appearance, PERRL, EOMI - ENT ENT exam: Present: mucous membranes moist - Neck Neck exam: Present: normal inspection - Respiratory Respiratory exam: Present: normal lung sounds bilaterally, chest wall tenderness. Absent: respiratory distress, wheezes, rales, rhonchi - Cardiovascular Cardiovascular Exam: Present: regular rate, normal rhythm. Absent: systolic murmur, diastolic murmur, rubs, gallop - GI/Abdominal GI/Abdominal exam: Present: soft, normal bowel sounds. Absent: distended, tenderness, guarding, rebound - Rectal Rectal exam: Present: deferred - Extremities Exam Extremities exam: Present: normal inspection - Back Exam Back exam: Present: normal inspection - Neurological Exam Neurological exam: Present: alert, oriented X3 - Psychiatric Psychiatric exam: Present: normal affect, normal mood - Skin Skin exam: Present: warm, dry, intact, normal color. Absent: rash ED Course Vital Signs 05/15/18 03:28 Temperature 97.8 F Pulse Rate 69 Respiratory 18 Rate Blood Pressure 115/71 O2 Sat by Pulse 98 Oximetry ED Medical Decision Making - Lab Data Labs 05/15/18 08:49 D-Dimer < 135.00 - EKG Data -: EKG Interpreted by Me EKG shows normal: sinus rhythm, axis, intervals, QRS complexes, ST-T waves Rate: normal - EKG Data Interpretation: normal EKG - Radiology Data Radiology results: report reviewed (CXR WNL) - Medical Decision Making Because of the patient's pleuritic component to his pain. A d-dimer was ordered which was negative. Patient is low risk for PE however he again stated that his main complaint was pain with breathing. He is being ruled out this time. Pat ient likely with some muscular skeletal pain secondary to his strenuous job and anterior muscle pull. Patient to be given meds for symptomatic relief be discharged home. Critical care attestation.: If time is entered above; I have spent that time in minutes in the direct care of this critically ill patient, excluding procedure time. ED Disposition Clinical Impression: Costochondral chest pain, Fungal skin infection Disposition: TO HOME OR SELFCARE Is pt being admited?: No Does the pt Need Aspirin: No Condition: Stable Instructions: Costochondritis (ED), Antifungals (On the skin) Referrals: RONY ELDRIDGE MD [Primary Care Provider] - 3-5 Days Time of Disposition: 09:25
[2018-05-15 09:34] VITALS: BP 132/83
== END 2018-05-15 09:33 | disposition home or self-care (01) ==
LOC: ED 03:19
DX: M94.0 Chondrocostal junction syndrome [Tietze] (principal); B36.9 Superficial mycosis, unspecified; Z91.013 Allergy to seafood
CPT/HCPCS: 36415; 71045; 85379; 93005; 93010; 99284

== ENCOUNTER 2018-05-21 05:11 | Emergency (ER) | payer MEDICAID ==
[2018-05-21 07:40] VITALS: BP 110/77
[2018-05-21] MEDS ORDERED: FIORICET PO ONE (08:13)
[2018-05-21] MEDS ORDERED: ZOFRAN ODT PO ONE (08:13)
--- NOTE | 2018-05-21 08:24 | Emergency Department Report ---
ED Headache HPI - General Chief Complaint: Dizziness Stated Complaint: DIZZINESS, BLURRED VISION,MIGRAINE Time Seen by Provider: 05/21/18 07:50 Source: patient Exam Limitations: no limitations - History of Present Illness Initial Comments: This is a 28-year-old male with no known prior medical condition who presents to the complaining of throbbing/aching-like headache for the past day. Patient states headache is sensitive to light, he denies nausea vomiting trauma fall or injuries to the head. He denies history of diabetes or hypertension. Patient does admit some blurry vision but no loss of vision to separate vision is intact. Timing/Duration: 24 hours Quality: moderate, achy, throbbing Head Injury Location: frontal, occipital Recent Head Trauma: no recent headache/trauma Modifying Factors: improves with: rest Associated Symptoms: denies: confusion, fatigue, facial pain, loss of consciousness, nausea/vomiting, nasal congestion, sinus infection Allergies/Adverse Reactions: Allergies shellfish derived Allergy (Verified 04/17/18 04:20) Swelling Home Medications: Ambulatory Orders Clotrimazole [Clotrimazole AF] 1 applic TP BID #30 cream..g. 05/15/18 Ibuprofen [Ibu] 800 mg PO Q8H PRN #20 tablet 05/15/18 methOCARBAMOL [Robaxin TAB] 500 mg PO Q6H PRN #14 tablet 05/15/18 traMADol [Ultram] 50 mg PO Q6HR PRN #12 tablet 05/15/18 Ibuprofen [Motrin] 800 mg PO Q8HR #30 tablet 05/21/18 Prochlorperazine [Compazine] 10 mg PO Q8HR #30 tablet 05/21/18 ED Review of Systems ROS: Stated complaint: DIZZINESS, BLURRED VISION,MIGRAINE Other details as noted in HPI Comment: All other systems reviewed and negative ED Past Medical Hx - Past Medical History Previous Medical History?: No Hx Hypertension: No Hx CVA: No Hx Heart Attack/AMI: No Hx Congestive Heart Failure: No Hx Diabetes: No Hx Deep Vein Thrombosis: No Hx Pulmonary Embolism: No Hx GERD: No Hx Liver Disease: No Hx Renal Disease: No Hx Sickle Cell Disease: No Hx Arthritis: No Hx Headaches / Migraines: No Hx Seizures: No Hx Kidney Stones: No Hx Psychiatric Treatment: No Hx Asthma: No Hx COPD: No Hx Tuberculosis: No Hx Dementia: No Hx HIV: No - Surgical History Past Surgical History?: Yes Hx Coronary Stent: No Hx Open Heart Surgery: No Hx Pacemaker: No Hx Internal Defibrillator: No Hx Cholecystectomy: No Hx Appendectomy: No Hx Breast Surgery: No Additional Surgical History: right thumb surgery - Social History Smoking Status: Never Smoker Substance Use Type: None - Medications Home Medications: Home Medications Medication Instructions Recorded Confirmed Last Taken Type Clotrimazole [Clotrimazole AF] 1 applic TP BID #30 cream..g. 05/15/18 Unknown Rx Ibuprofen [Ibu] 800 mg PO Q8H PRN #20 tablet 05/15/18 Unknown Rx methOCARBAMOL [Robaxin TAB] 500 mg PO Q6H PRN #14 tablet 05/15/18 Unknown Rx traMADol [Ultram] 50 mg PO Q6HR PRN #12 tablet 05/15/18 Unknown Rx Ibuprofen [Motrin] 800 mg PO Q8HR #30 tablet 05/21/18 Unknown Rx Prochlorperazine [Compazine] 10 mg PO Q8HR #30 tablet 05/21/18 Unknown Rx ED Physical Exam - General Limitations: No Limitations General appearance: alert, in no apparent distress - Head Head exam: Present: atraumatic, normocephalic - Eye Eye exam: Present: normal appearance, PERRL, EOMI Pupils: Present: normal accommodation - ENT ENT exam: Present: mucous membranes moist - Neck Neck exam: Present: normal inspection, full ROM. Absent: tenderness, lymphadenopathy - Respiratory Respiratory exam: Present: normal lung sounds bilaterally. Absent: respiratory distress - Cardiovascular Cardiovascular Exam: Present: regular rate, normal rhythm. Absent: systolic murmur, diastolic murmur, rubs, gallop - GI/Abdominal GI/Abdominal exam: Present: soft, normal bowel sounds - Rectal Rectal exam: Present: deferred - Extremities Exam Extremities exam: Present: normal inspection - Back Exam Back exam: Present: normal inspection, full ROM - Neurological Exam Neurological exam: Present: alert, oriented X3, CN II-XII intact, normal gait - Expanded Neurological Exam Expanded Patient oriented to: Present: person, place, time Speech: Present: fluid speech Cerebellar function: Finger to Nose: Normal Sensory exam: Upper Extremity Light Touch: Normal, Lower Extremity Light Touch: Normal Motor strength exam: RUE: 5, LUE: 5, RLE: 5, LLE: 5 Best Eye Response (Sadaf): (4) open spontaneously Best Motor Response (Adak): (6) obeys commands Best Verbal Response (Adak): (5) oriented Adak Total: 15 - Psychiatric Psychiatric exam: Present: normal affect, normal mood - Skin Skin exam: Present: warm, dry, intact, normal color. 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 Patient received Fioricet and Zofran ODT. She reports that approximately discharged. Palpation on the vomiting episode in the ED. Discussed with the patient to follow up with neurologist if symptoms persist. Vital signs are normal patient is in no acute distress. Patient is neurologically intact with no neuro deficit Critical care attestation.: If time is entered above; I have spent that time in minutes in the direct care of this critically ill patient, excluding procedure time. ED Disposition Clinical Impression: Tension headache Disposition: DC-01 TO HOME OR SELFCARE Is pt being admited?: No Does the pt Need Aspirin: No Condition: Stable Instructions: Migraine Headache (ED), Tension Headache (ED) Additional Instructions: Make sure to follow up with the primary care physician as discussed. Take all your medications as you've been prescribed. If you have any worsening symptoms or develop new symptoms please return to ED immediately. Prescriptions: Prochlorperazine [Compazine] 10 mg PO Q8HR #30 tablet Ibuprofen [Motrin] 800 mg PO Q8HR #30 tablet Referrals: FRANCOIS REA MD [Primary Care Provider] - 3-5 Days DAISY MARTINEZ MD [Staff Physician] - 3-5 Days Forms: Work/School Release Form(ED) Time of Disposition: 08:32
== END 2018-05-21 08:51 | disposition home or self-care (01) ==
LOC: ED 05:11
DX: G44.209 Tension-type headache, unspecified, not intractable (principal); Z91.013 Allergy to seafood
CPT/HCPCS: 99282; Q0162

== ENCOUNTER 2018-06-26 21:54 | Emergency (ER) | payer MEDICAID ==
[2018-06-26 23:15] VITALS: BP 130/86
[2018-06-27] MEDS ORDERED: TORADOL IM ONE (01:15)
[2018-06-27] MEDS ORDERED: FLEXERIL PO ONE (01:16)
--- NOTE | 2018-06-27 01:46 | Cat Scan Report ---
PROCEDURE: CT HEAD/BRAIN WO CON TECHNIQUE: Computerized tomography of the head was performed without contrast material. CT DOSE LENGTH PRODUCT: mGycm HISTORY: traumatic injury COMPARISONS: 04/17/2018 . FINDINGS: Skull and scalp: Normal . Paranasal sinuses: Normal . Ventricles and subarachnoid spaces: Normal . Cerebrum: No evidence of hemorrhage, acute infarction or mass . Cerebellum and brainstem: No evidence of hemorrhage, acute infarction or mass . Vasculature: Normal . Other: None . ASPECTS: 10 IMPRESSION: No acute intracranial process. . This document is electronically signed by Paulo Tompkins MD., Jun 27 2018 01:44:32 AM ET
--- NOTE | 2018-06-27 02:01 | XRay Report ---
PROCEDURE: XR RIBS UNI W PA CHEST 3+V LT TECHNIQUE: Right rib radiographs, 3 views of the ribs, including PA chest. HISTORY: traumatic injury COMPARISONS: None . FINDINGS: Heart: Normal . Mediastinum/Vessels: Normal . Lungs: Normal . Pleural space: Normal . Pneumothorax: None . Bony thorax/ribs: No acute or displaced rib fractures. IMPRESSION: No acute abnormality of the chest and right ribs. This document is electronically signed by Sonny Watkins MD., Jun 27 2018 01:58:57 AM ET
--- NOTE | 2018-06-27 02:15 | Emergency Department Report ---
ED Chest Pain HPI - General Chief Complaint: Chest Pain Stated Complaint: HEAD/CHEST INJURY Time Seen by Provider: 06/27/18 01:10 Source: patient Mode of arrival: Ambulatory Limitations: No Limitations - History of Present Illness Initial Comments: Patient is a 28-year-old AA male with no past medical history who presents to the ED with complaint of acute onset persistent left lateral rib cage and chest wall pain and headache after a metallic weight at the gym that he was lifting slipped off his hand and hit him on the left side of his chest about 4 hours ago, and resulted in him staggering and hitting his head against a metallic nearby. Patient states that he got dazed afterwards and has been having left- sided chest wall pain with inhalation and palpation. Patient denies shortness of breath, dizziness, change in urination, nausea, vomiting, loss of consciousness, abdominal pain, pain, neck pain or seizures and syncope. MD Complaint: chest pain (left-sided rib and chest wall pain), other (Head injury) -: Sudden, hour(s) (4) Onset: other (due to injury of left chest wall) Pain Location: left chest Pain Radiation: none Severity: severe Severity scale (0 -10): 7 Quality: aching, sharp Improves With: rest Worsens With: palpation, movement Context: trauma/injury (metallic rail hit his head, metallic weight hit chest wall on the left) re: denies: nausea, vomting, diaphoresis, dyspnea, sense of impending doom Other Symptoms: denies: cough, fever, syncope, rash, acid taste in mouth, leg swelling, palpitations, burping Treatments Prior to Arrival: none - Related Data Previous Rx's Medication Instructions Recorded Last Taken Type Clotrimazole [Clotrimazole AF] 1 applic TP BID #30 cream..g. 05/15/18 Unknown Rx Ibuprofen [Ibu] 800 mg PO Q8H PRN #20 tablet 05/15/18 Unknown Rx methOCARBAMOL [Robaxin TAB] 500 mg PO Q6H PRN #14 tablet 05/15/18 Unknown Rx traMADol [Ultram] 50 mg PO Q6HR PRN #12 tablet 05/15/18 Unknown Rx Ibuprofen [Motrin] 800 mg PO Q8HR #30 tablet 05/21/18 Unknown Rx Prochlorperazine [Compazine] 10 mg PO Q8HR #30 tablet 05/21/18 Unknown Rx Cyclobenzaprine [Flexeril] 10 mg PO TID PRN #30 tablet 06/01/18 Unknown Rx Menthol/Camphor [[place] 1 applicatio TP QID PRN #1 tube 06/01/18 Unknown Rx Ointment] Naproxen 500 mg PO BID PRN #30 tablet 06/01/18 Unknown Rx Cyclobenzaprine [Flexeril] 10 mg PO Q8H PRN #15 tablet 06/27/18 Unknown Rx Naproxen 500 mg PO Q12H PRN #20 tablet 06/27/18 Unknown Rx Allergies Allergy/AdvReac Type Severity Reaction Status Date / Time shellfish derived Allergy Swelling Verified 04/17/18 04:20 Heart Score - HEART Score History: Slightly suspicious EKG: Normal Age: < 45 Risk factors: No known risk factors Troponin: < normal limit HEART Score: 0 ED Review of Systems ROS: Stated complaint: HEAD/CHEST INJURY Other details as noted in HPI Comment: All other systems reviewed and negative Constitutional: no symptoms reported, see HPI. denies: diaphoresis, fever, weakness Eyes: as per HPI. denies: eye pain, eye discharge, vision change ENT: as per HPI. denies: ear pain, throat pain, dental pain, hearing loss, congestion Respiratory: no symptoms reported, see HPI. denies: cough, shortness of breath, SOB with exertion, SOB at rest, wheezing Cardiovascular: as per HPI, chest pain (left-sided chest wall and rib pain). denies: palpitations, dyspnea on exertion, orthopnea, edema, syncope, paroxysmal nocturnal dyspnea Endocrine: no symptoms reported, see HPI. denies: excessive sweating, flushing, intolerance to heat, increased hunger, increased thirst, increased urine Gastrointestinal: as per HPI. denies: abdominal pain, nausea, vomiting, diarrhea, constipation, hematemesis, hematochezia Genitourinary: as per HPI. denies: urgency, dysuria, frequency, hematuria, discharge, testicular pain, testicular mass Musculoskeletal: as per HPI. denies: back pain, joint swelling, arthralgia, myalgia Skin: as per HPI. denies: rash, lesions, change in color, change in hair/nails, pruritus Neurological: as per HPI. denies: headache, weakness, numbness, paresthesias, confusion, abnormal gait, vertigo Psychiatric: as per HPI Hematological/Lymphatic: as per HPI ED Past Medical Hx - Past Medical History Hx Hypertension: No Hx CVA: No Hx Heart Attack/AMI: No Hx Congestive Heart Failure: No Hx Diabetes: No Hx Deep Vein Thrombosis: No Hx Pulmonary Embolism: No Hx GERD: No Hx Liver Disease: No Hx Renal Disease: No Hx Sickle Cell Disease: No Hx Arthritis: No Hx Headaches / Migraines: No Hx Seizures: No Hx Kidney Stones: No Hx Psychiatric Treatment: No Hx Asthma: No Hx COPD: No Hx Tuberculosis: No Hx Dementia: No Hx HIV: No - Surgical History Hx Coronary Stent: No Hx Open Heart Surgery: No Hx Pacemaker: No Hx Internal Defibrillator: No Hx Cholecystectomy: No Hx Appendectomy: No Hx Breast Surgery: No Additional Surgical History: right thumb surgery - Social History Smoking Status: Never Smoker Substance Use Type: None - Medications Home Medications: Home Medications Medication Instructions Recorded Confirmed Last Taken Type Clotrimazole [Clotrimazole AF] 1 applic TP BID #30 cream..g. 05/15/18 Unknown Rx Ibuprofen [Ibu] 800 mg PO Q8H PRN #20 tablet 05/15/18 Unknown Rx methOCARBAMOL [Robaxin TAB] 500 mg PO Q6H PRN #14 tablet 05/15/18 Unknown Rx traMADol [Ultram] 50 mg PO Q6HR PRN #12 tablet 05/15/18 Unknown Rx Ibuprofen [Motrin] 800 mg PO Q8HR #30 tablet 05/21/18 Unknown Rx Prochlorperazine [Compazine] 10 mg PO Q8HR #30 tablet 05/21/18 Unknown Rx Cyclobenzaprine [Flexeril] 10 mg PO TID PRN #30 tablet 06/01/18 Unknown Rx Menthol/Camphor [[place] 1 applicatio TP QID PRN #1 tube 06/01/18 Unknown Rx Ointment] Naproxen 500 mg PO BID PRN #30 tablet 06/01/18 Unknown Rx Cyclobenzaprine [Flexeril] 10 mg PO Q8H PRN #15 tablet 06/27/18 Unknown Rx Naproxen 500 mg PO Q12H PRN #20 tablet 06/27/18 Unknown Rx ED Physical Exam - General Limitations: No Limitations General appearance: alert, in no apparent distress - Head Head exam: Present: atraumatic, normocephalic, normal inspection - Eye Eye exam: Present: normal appearance, PERRL, EOMI. Absent: scleral icterus, conjunctival injection, periorbital swelling, periorbital tenderness Pupils: Present: normal accommodation. Absent: unequal, miosis, mydriatic - ENT ENT exam: Present: normal exam, normal orophraynx, mucous membranes moist, TM's normal bilaterally, normal external ear exam - Neck Neck exam: Present: normal inspection, full ROM. Absent: tenderness, meningismus, lymphadenopathy, thyromegaly - Respiratory Respiratory exam: Present: normal lung sounds bilaterally, chest wall tenderness (palpable left lateral chest wall and rib tenderness). Absent: respiratory distress, wheezes, rales, rhonchi, accessory muscle use, decreased breath sounds, prolonged expiratory - Cardiovascular Cardiovascular Exam: Present: normal rhythm, bradycardia, normal heart sounds. Absent: irregular rhythm, systolic murmur, diastolic murmur - GI/Abdominal GI/Abdominal exam: Present: soft, normal bowel sounds. Absent: distended, tenderness, rebound, hyperactive bowel sounds, hypoactive bowel sounds - Rectal Rectal exam: Present: deferred - Extremities Exam Extremities exam: Present: normal inspection, full ROM, normal capillary refill. Absent: pedal edema, joint swelling - Back Exam Back exam: Present: normal inspection, full ROM. Absent: tenderness, CVA tenderness (R), CVA tenderness (L), muscle spasm, paraspinal tenderness, vertebral tenderness - Neurological Exam Neurological exam: Present: alert, oriented X3, CN II-XII intact, normal gait, reflexes normal. Absent: motor sensory deficit - Psychiatric Psychiatric exam: Present: normal affect - Skin Skin exam: Present: warm, dry, intact ED Course Vital Signs 06/26/18 23:13 Temperature 98.2 F Pulse Rate 55 L Respiratory 18 Rate Blood Pressure 130/86 O2 Sat by Pulse 98 Oximetry - Reevaluation(s) Reevaluation #1: 06/27/18 02:19 Patient is alert and oriented 3 and is not in distress, sleeping in the physical exam and with normal vital signs. The EKG shows sinus bradycardia with a heart rate of 51 with a minute and no ST or T-wave abnormalities. Chest x- ray with ribs show no acute cardiopulmonary abnormalities, and no acute rib fractures. The head CT scan without contrast shows no acute intracranial abnormalities. On reevaluation, patient pain is well controlled and was discharged home on pain medications and muscle relaxants and advised to follow- up with his primary care physician in 3-5 days for reevaluation, or return to the ED immediately if symptoms get worse. KALEIGH score - Kaleigh Score Age > 65: (0) No Aspirin use within the Past 7 Days: (0) No 3 or more CAD Risk Factors: (0) No 2 or more Angina events in past 24 hrs: (0) No Known CAD with more than 50% Stenosis: (0) No Elevated Cardiac Markers: (0) No ST Deviation Greater than 0.5mm: (0) No KALEIGH Score: 0 ED Medical Decision Making - Radiology Data Radiology results: report reviewed, image reviewed Chest x-ray with left ribs: No acute left rib fractures, also no acute cardiopulmonary abnormalities Head CT scan w/o contrast: No acute intracranial abnormalities - Medical Decision Making Patient is alert and oriented 3 and is not in distress, sleeping in the physical exam and with normal vital signs. The EKG shows sinus bradycardia with a heart rate of 51 with a minute and no ST or T-wave abnormalities. Chest x- ray with ribs show no acute cardiopulmonary abnormalities, and no acute rib fractures. The head CT scan without contrast shows no acute intracranial abnormalities. On reevaluation, patient pain is well controlled and was discharged home on pain medications and muscle relaxants and advised to follow- up with his primary care physician in 3-5 days for reevaluation, or return to the ED immediately if symptoms get worse. - Differential Diagnosis left rib fractures, chest/rib contusion, head injury Critical care attestation.: If time is entered above; I have spent that time in minutes in the direct care of this critically ill patient, excluding procedure time. ED Disposition Clinical Impression: Rib pain on left side Contusion of left chest wall Qualifiers: Encounter type: initial encounter Qualified Code(s): S20.212A - Contusion of left front wall of thorax, initial encounter Contusion of scalp Qualifiers: Encounter type: initial encounter Qualified Code(s): S00.03XA - Contusion of scalp, initial encounter Disposition: TO HOME OR SELFCARE Is pt being admited?: No Does the pt Need Aspirin: No Condition: Stable Instructions: Chest Pain (ED), Contusion in Adults (ED), Scalp Contusion in Adults (ED) Additional Instructions: Take pain medications, drink plenty of fluids and follow up with your primary care physician in 3-5 days for reevaluation, and return to the ED immediately if symptoms get worse. Prescriptions: Cyclobenzaprine [Flexeril] 10 mg PO Q8H PRN #15 tablet PRN Reason: Spasms Naproxen 500 mg PO Q12H PRN #20 tablet PRN Reason: Pain , Severe (7-10) Referrals: RONY ELDRIDGE MD [Primary Care Provider] - 3-5 Days Time of Disposition: 02:26 Print Language: ARMENIAN
== END 2018-06-27 02:45 | disposition home or self-care (01) ==
LOC: ED 21:54
DX: S20.212A Contusion of left front wall of thorax, initial encounter (principal); S00.03XA Contusion of scalp, initial encounter; Z91.013 Allergy to seafood; W01.198A Fall on same level from slipping, tripping and stumbling with subsequent striking against other object, initial encounter; Y93.43 Activity, gymnastics; Y92.39 Other specified sports and athletic area as the place of occurrence of the external cause; Y99.8 Other external cause status
CPT/HCPCS: 70450; 71101; 93005; 93010; 96372; 99284; J1885

== ENCOUNTER 2019-05-11 18:51 | Emergency (ER) | payer MEDICAID ==
[2019-05-11] MEDS ORDERED: ONDANSETRON 4 MG/2 ML INJ IV ONE (19:32)
[2019-05-11] MEDS ORDERED: SODIUM CHLORIDE 0.9% 1000 ML 1,000 ML IV ONE ×2 (19:32→21:51)
--- NOTE | 2019-05-11 19:43 | Emergency Department Report ---
ED N/V/D HPI - General Chief complaint: Chest Pain Stated complaint: CHEST PAIN/NAUSEA/VOMITING Time Seen by Provider: 05/11/19 19:21 Source: EMS Mode of arrival: Stretcher Limitations: No Limitations - History of Present Illness Initial comments: 29-year-old male with a past medical history of depression presents to the hospital complains of nausea and vomiting that started 2 hours prior to arrival. Patient was admitted to [facility] inpatient treatment overnight for depression. Today he was discharged to outpatient treatment but has been [facility] since yesterday. For the last 2 hours he has had nausea, 8 episodes of vomiting, and generalized shaking with chills. He denies diarrhea, abdominal pain, melena, medicates here, hematemesis, or documented fever. Cough productive of yellow phlegm reported. Patient complains of numbness and pain to the left upper chest and left upper arm down to the elbow. Patient does not have a history of CAD, hypertension, diabetes, or elevated cholesterol. He smokes marijuana. Prior to going to [facility] he has been quarantining at home with his kids and family. He denies recent travel, known sick contacts, or known COVID19. Patient received aspirin, nitroglycerin, Zofran 4 mg via ems in route. - Related Data Previous Rx's Medication Instructions Recorded Last Taken Type Clotrimazole [Clotrimazole AF] 1 applic TP BID #30 cream..g. 05/15/18 Unknown Rx Ibuprofen [Ibu] 800 mg PO Q8H PRN #20 tablet 05/15/18 Unknown Rx methOCARBAMOL [Robaxin TAB] 500 mg PO Q6H PRN #14 tablet 05/15/18 Unknown Rx traMADoL [Ultram] 50 mg PO Q6HR PRN #12 tablet 05/15/18 Unknown Rx Prochlorperazine [Compazine] 10 mg PO Q8HR #30 tablet 05/21/18 Unknown Rx Cyclobenzaprine [Flexeril] 10 mg PO TID PRN #30 tablet 06/01/18 Unknown Rx Menthol/Camphor [[place] 1 applicatio TP QID PRN #1 tube 06/01/18 Unknown Rx Ointment] Naproxen 500 mg PO BID PRN #30 tablet 06/01/18 Unknown Rx Cyclobenzaprine [Flexeril] 10 mg PO Q8H PRN #15 tablet 06/27/18 Unknown Rx Naproxen 500 mg PO Q12H PRN #20 tablet 06/27/18 Unknown Rx Ibuprofen [Motrin 800 MG tab] 800 mg PO Q8HR PRN #30 tablet 05/12/19 Unknown Rx Ondansetron [Zofran Odt] 4 mg PO Q8HR PRN #20 tab.rapdis 05/12/19 Unknown Rx Allergies Allergy/AdvReac Type Severity Reaction Status Date / Time shellfish derived Allergy Swelling Verified 04/17/18 04:20 ED Review of Systems ROS: Stated complaint: CHEST PAIN/NAUSEA/VOMITING Other details as noted in HPI Comment: All other systems reviewed and negative ED Past Medical Hx - Past Medical History Hx Hypertension: No Hx CVA: No Hx Heart Attack/AMI: No Hx Congestive Heart Failure: No Hx Diabetes: No Hx Deep Vein Thrombosis: No Hx Pulmonary Embolism: No Hx GERD: No Hx Liver Disease: No Hx Renal Disease: No Hx Sickle Cell Disease: No Hx Arthritis: No Hx Headaches / Migraines: No Hx Seizures: No Hx Kidney Stones: No Hx Psychiatric Treatment: No Hx Asthma: No Hx COPD: No Hx Tuberculosis: No Hx Dementia: No Hx HIV: No - Surgical History Hx Coronary Stent: No Hx Open Heart Surgery: No Hx Pacemaker: No Hx Internal Defibrillator: No Hx Cholecystectomy: No Hx Appendectomy: No Hx Breast Surgery: No Additional Surgical History: right thumb surgery - Social History Smoking Status: Never Smoker Substance Use Type: Marijuana - Medications Home Medications: Home Medications Medication Instructions Recorded Confirmed Last Taken Type Clotrimazole [Clotrimazole AF] 1 applic TP BID #30 cream..g. 05/15/18 Unknown Rx Ibuprofen [Ibu] 800 mg PO Q8H PRN #20 tablet 05/15/18 Unknown Rx methOCARBAMOL [Robaxin TAB] 500 mg PO Q6H PRN #14 tablet 05/15/18 Unknown Rx traMADoL [Ultram] 50 mg PO Q6HR PRN #12 tablet 05/15/18 Unknown Rx Prochlorperazine [Compazine] 10 mg PO Q8HR #30 tablet 05/21/18 Unknown Rx Cyclobenzaprine [Flexeril] 10 mg PO TID PRN #30 tablet 06/01/18 Unknown Rx Menthol/Camphor [[place] 1 applicatio TP QID PRN #1 tube 06/01/18 Unknown Rx Ointment] Naproxen 500 mg PO BID PRN #30 tablet 06/01/18 Unknown Rx Cyclobenzaprine [Flexeril] 10 mg PO Q8H PRN #15 tablet 06/27/18 Unknown Rx Naproxen 500 mg PO Q12H PRN #20 tablet 06/27/18 Unknown Rx Ibuprofen [Motrin 800 MG tab] 800 mg PO Q8HR PRN #30 tablet 05/12/19 Unknown Rx Ondansetron [Zofran Odt] 4 mg PO Q8HR PRN #20 tab.rapdis 05/12/19 Unknown Rx ED Physical Exam - General Limitations: No Limitations - Other Other exam information: General: No acute distress Head: Atraumatic Eyes: normal appearance ENT: Moist mucous membranes Neck: Normal appearance, no midline tenderness Chest: Clear to auscultation bilaterally CV: Regular rate and rhythm Abdomen: Soft, normal bowel sounds, nontender, nondistended, no rebound or guarding Back: Normal inspection Extremity: Normal inspection, full range of motion, no calf tenderness, leg edema Neuro: Alert O x 3, no facial asymmetry, speech clear, decrease sensation light touch to left upper chest and left upper arm down to elbow. pt shaking his legs intermittently. leg shaking appears to be voluntary. no seizure activity. Psych: Appropriate behavior Skin: No rash ED Course Vital Signs 05/11/19 05/11/19 05/11/19 19:18 19:25 19:30 Temperature 98 F Pulse Rate 92 H Respiratory 16 20 Rate Blood Pressure 155/87 145/88 Blood Pressure [Right] O2 Sat by Pulse 99 100 100 Oximetry 05/11/19 05/11/19 05/11/19 19:38 19:46 20:00 Temperature Pulse Rate 76 83 Respiratory 23 Rate Blood Pressure 145/88 130/84 Blood Pressure [Right] O2 Sat by Pulse 98 94 Oximetry 05/11/19 05/11/19 05/11/19 20:15 20:30 20:45 Temperature Pulse Rate 79 75 77 Respiratory 21 21 24 Rate Blood Pressure 131/81 118/74 124/79 Blood Pressure [Right] O2 Sat by Pulse 99 100 97 Oximetry 05/11/19 05/11/19 05/11/19 21:00 21:15 21:30 Temperature Pulse Rate 85 76 79 Respiratory 21 19 17 Rate Blood Pressure 134/82 129/71 125/77 Blood Pressure [Right] O2 Sat by Pulse 96 94 96 Oximetry 05/11/19 05/11/19 05/11/19 21:45 22:00 22:15 Temperature Pulse Rate 77 73 Respiratory 25 H 17 Rate Blood Pressure 134/80 131/89 138/100 Blood Pressure [Right] O2 Sat by Pulse 96 94 95 Oximetry 05/11/19 05/11/19 05/11/19 22:30 22:45 23:00 Temperature Pulse Rate Respiratory Rate Blood Pressure 135/80 137/94 145/100 Blood Pressure [Right] O2 Sat by Pulse 100 100 Oximetry 05/11/19 05/11/19 05/11/19 23:15 23:30 23:45 Temperature Pulse Rate Respiratory Rate Blood Pressure 120/88 129/94 138/87 Blood Pressure [Right] O2 Sat by Pulse 98 97 100 Oximetry 05/12/19 05/12/19 05/12/19 00:00 00:15 00:30 Temperature Pulse Rate Respiratory Rate Blood Pressure 130/86 135/91 140/102 Blood Pressure [Right] O2 Sat by Pulse 98 97 98 Oximetry 05/12/19 00:59 Temperature 98.9 F Pulse Rate 79 Respiratory 18 Rate Blood Pressure Blood Pressure 121/78 [Right] O2 Sat by Pulse 99 Oximetry - Reevaluation(s) Reevaluation #1: 05/11/19 21:53 nausea and vomiting improved. Pt c/o still feeling weak, no uop after 1 L, additional liter given, po challenge will be provided ED Medical Decision Making - Lab Data Result diagrams: 05/11/19 20:07 05/11/19 20:07 Lab Results 05/11/19 05/11/19 05/11/19 Range/Units 20:07 20:07 20:07 WBC 13.3 H (4.5-11.0) K/mm3 RBC 4.71 (3.65-5.03) M/mm3 Hgb 13.9 (11.8-15.2) gm/dl Hct 42.5 (35.5-45.6) % MCV 90 (84-94) fl MCH 30 (28-32) pg MCHC 33 (32-34) % RDW 14.3 (13.2-15.2) % Plt Count 225 (140-440) K/mm3 Lymph % (Auto) 11.3 L (13.4-35.0) % [place] % (Auto) 9.0 H (0.0-7.3) % Eos % (Auto) 0.7 (0.0-4.3) % Baso % (Auto) 0.8 (0.0-1.8) % Lymph # 1.5 (1.2-5.4) K/mm3 [place] # 1.2 H (0.0-0.8) K/mm3 Eos # 0.1 (0.0-0.4) K/mm3 Baso # 0.1 (0.0-0.1) K/mm3 Seg Neutrophils % 78.2 H (40.0-70.0) % Seg Neutrophils # 10.4 H (1.8-7.7) K/mm3 Sodium 136 L (137-145) mmol/L Potassium 3.5 L (3.6-5.0) mmol/L Chloride 102.2 (98-107) mmol/L Carbon Dioxide 20 L (22-30) mmol/L Anion Gap 17 mmol/L BUN 6 L (9-20) mg/dL Creatinine 1.1 (0.8-1.5) mg/dL Estimated GFR > 60 ml/min BUN/Creatinine Ratio 5 % Glucose 91 (75-100) mg/dL Calcium 8.2 L (8.4-10.2) mg/dL Magnesium 2.00 (1.7-2.3) mg/dL Total Bilirubin 0.20 (0.1-1.2) mg/dL AST 13 (5-40) units/L ALT 7 (7-56) units/L Alkaline Phosphatase 50 (35-129) units/L Troponin T < 0.010 (0.00-0.029) ng/mL Total Protein 6.3 (6.3-8.2) g/dL Albumin 3.6 L (3.9-5) g/dL Albumin/Globulin Ratio 1.3 % Lipase 156 H (13-60) units/L Urine Color (Yellow) Urine Turbidity (Clear) Urine pH (5.0-7.0) Ur Specific [place] (1.003-1.030) Urine Protein (Negative) mg/dL Urine Glucose (UA) (Negative) mg/dL Urine Ketones (Negative) mg/dL Urine Blood (Negative) Urine Nitrite (Negative) Urine Bilirubin (Negative) Urine Urobilinogen (<2.0) mg/dL Ur Leukocyte Esterase (Negative) Urine WBC (Auto) (0.0-6.0) /HPF Urine RBC (Auto) (0.0-6.0) /HPF Urine Mucus /HPF Urine Opiates Screen Urine Methadone Screen Ur Barbiturates Screen Ur Phencyclidine Scrn Ur Amphetamines Screen U Benzodiazepines Scrn Urine Cocaine Screen U Marijuana (THC) Screen Drugs of Abuse Note 05/11/19 05/11/19 Range/Units Unknown Unknown WBC (4.5-11.0) K/mm3 RBC (3.65-5.03) M/mm3 Hgb (11.8-15.2) gm/dl Hct (35.5-45.6) % MCV (84-94) fl MCH (28-32) pg MCHC (32-34) % RDW (13.2-15.2) % Plt Count (140-440) K/mm3 Lymph % (Auto) (13.4-35.0) % [place] % (Auto) (0.0-7.3) % Eos % (Auto) (0.0-4.3) % Baso % (Auto) (0.0-1.8) % Lymph # (1.2-5.4) K/mm3 [place] # (0.0-0.8) K/mm3 Eos # (0.0-0.4) K/mm3 Baso # (0.0-0.1) K/mm3 Seg Neutrophils % (40.0-70.0) % Seg Neutrophils # (1.8-7.7) K/mm3 Sodium (137-145) mmol/L Potassium (3.6-5.0) mmol/L Chloride (98-107) mmol/L Carbon Dioxide (22-30) mmol/L Anion Gap mmol/L BUN (9-20) mg/dL Creatinine (0.8-1.5) mg/dL Estimated GFR ml/min BUN/Creatinine Ratio % Glucose (75-100) mg/dL Calcium (8.4-10.2) mg/dL Magnesium (1.7-2.3) mg/dL Total Bilirubin (0.1-1.2) mg/dL AST (5-40) units/L ALT (7-56) units/L Alkaline Phosphatase (35-129) units/L Troponin T (0.00-0.029) ng/mL Total Protein (6.3-8.2) g/dL Albumin (3.9-5) g/dL Albumin/Globulin Ratio % Lipase (13-60) units/L Urine Color Yellow (Yellow) Urine Turbidity Slightly-cloudy (Clear) Urine pH 7.0 (5.0-7.0) Ur Specific [place] 1.020 (1.003-1.030) Urine Protein <15 mg/dl (Negative) mg/dL Urine Glucose (UA) Neg (Negative) mg/dL Urine Ketones Tr (Negative) mg/dL Urine Blood Neg (Negative) Urine Nitrite Neg (Negative) Urine Bilirubin Neg (Negative) Urine Urobilinogen 2.0 (<2.0) mg/dL Ur Leukocyte Esterase Neg (Negative) Urine WBC (Auto) 2.0 (0.0-6.0) /HPF Urine RBC (Auto) 3.0 (0.0-6.0) /HPF Urine Mucus Few /HPF Urine Opiates Screen Presumptive negative Urine Methadone Screen Presumptive negative Ur Barbiturates Screen Presumptive negative Ur Phencyclidine Scrn Presumptive negative Ur Amphetamines Screen Presumptive negative U Benzodiazepines Scrn Presumptive negative Urine Cocaine Screen Presumptive negative U Marijuana (THC) Screen Presumptive positive Drugs of Abuse Note Disclamer - EKG Data -: EKG Interpreted by Mi EKG shows normal: sinus rhythm, ST-T waves (no stemi) Rate: normal - Radiology Data Radiology results: report reviewed CHEST 2 VIEWS INDICATION / CLINICAL INFORMATION: cough. COMPARISON: 05/14/2018 FINDINGS: SUPPORT DEVICES: None. HEART / MEDIASTINUM: No significant abnormality. LUNGS / PLEURA: No significant pulmonary or pleural abnormality. No pneumothorax. ADDITIONAL FINDINGS: No significant additional findings. IMPRESSION: No significant abnormality or change from 05/15/2018 - Medical Decision Making Patient without vomiting during ED stay. Very mild elevation of lipase noted however, patient does not have epigastric tenderness or endorsed abdominal pain radiating to the back. Normal LFTs. No fever here in the ED which was verified x2. Mild dehydration suspected given increase specific gravity and trace ketones. Patient complained of cough onset at the same time of nausea and vomiting. No coughing noted in the ED and patient does not have hypoxia and has a normal chest x-ray. Patient will be discharged back to psychiatric facility and treated for gastritis/viral syndrome. PO KCL given for mild hypokalemia - Differential Diagnosis viral illness, radiculopathy, mi, Critical Care Time: No Critical care attestation.: If time is entered above; I have spent that time in minutes in the direct care of this critically ill patient, excluding procedure time. ED Disposition Clinical Impression: Viral illness, Nausea and vomiting, Dehydration, Left arm numbness Disposition: - TO HOME OR SELFCARE Is pt being admited?: No Does the pt Need Aspirin: No Condition: Stable Instructions: Viral Syndrome (ED), Acute Nausea and Vomiting (ED), Paresthesia (ED) Additional Instructions: Take the medication as prescribed. Follow-up with your doctor or doctor/clinic provided. Return if symptoms worsen as indicated by your discharge instructions. Prescriptions: Ibuprofen [Motrin 800 MG tab] 800 mg PO Q8HR PRN #30 tablet PRN Reason: Pain , Severe (7-10) Ondansetron [Zofran Odt] 4 mg PO Q8HR PRN #20 tab.rapdis PRN Reason: Nausea And Vomiting Referrals: PRIMARY CARE, [Primary Care Provider] - 3-5 Days FRANCOIS REA MD [Staff Physician] - 3-5 Days Time of Disposition: 01:03
--- NOTE | 2019-05-11 20:03 | XRay Report ---
CHEST 2 VIEWS INDICATION / CLINICAL INFORMATION: cough. COMPARISON: 05/14/2018 FINDINGS: SUPPORT DEVICES: None. HEART / MEDIASTINUM: No significant abnormality. LUNGS / PLEURA: No significant pulmonary or pleural abnormality. No pneumothorax. ADDITIONAL FINDINGS: No significant additional findings. IMPRESSION: No significant abnormality or change from 05/15/2018 Signer Name: Ryan Thomas MD FACR Signed: 05/11/2019 7:59 PM Workstation Name: [id number]
[2019-05-11 20:42] LABS: Basophils # (Auto) 0.1 K/mm3 (0.0-0.1); Basophils % (Auto) 0.8 % (0.0-1.8); Eosinophils # (Auto) 0.1 K/mm3 (0.0-0.4); Eosinophils % (Auto) 0.7 % (0.0-4.3); Hematocrit 42.5 % (35.5-45.6); Hemoglobin 13.9 gm/dl (11.8-15.2); Lymphocytes # (Auto) 1.5 K/mm3 (1.2-5.4); Lymphocytes % (Auto) 11.3 % (13.4-35.0); Mean Corpuscular HGB Conc 33 % (32-34); Mean Corpuscular Volume 90 fl (84-94); Monocytes # (Auto) 1.2 K/mm3 (0.0-0.8); Platelet Count 225 K/mm3 (140-440); Red Blood Count 4.71 M/mm3 (3.65-5.03); Red Cell Distribution Width 14.3 % (13.2-15.2)
[2019-05-11 21:02] LABS: Alanine Aminotransferase 7 units/L (7-56); Albumin 3.6 g/dL (3.9-5); BUN/Creatinine Ratio 5; Blood Urea Nitrogen 6 mg/dL (9-20); Calcium 8.2 mg/dL (8.4-10.2); Hemolysis Index 13
[2019-05-11 23:37] LABS: Bilirubin,Urine NEG (Negative); Blood,Urine NEG (Negative); Color,Urine Yellow (Yellow); Mucus,Urine FEW /HPF; Protein,Urine <15 mg/dL mg/dL (Negative)
[2019-05-11 23:39] LABS: Amphetamine Screen,Urine PRESUMPTIVE NEGATIVE; Benzodiazepines Screen,Urine PRESUMPTIVE NEGATIVE; Cocaine Screen,Urine PRESUMPTIVE NEGATIVE; Methadone Screen,Urine PRESUMPTIVE NEGATIVE; Opiate Screen,Urine PRESUMPTIVE NEGATIVE
[2019-05-12 00:09] LABS: Cannabinoid Screen,Urine PRESUMPTIVE POSITIVE
[2019-05-12 01:32] VITALS: BP 126/75
== END 2019-05-12 01:56 | disposition home or self-care (01) ==
LOC: ED 18:51
DX: E86.0 Dehydration (principal); B34.9 Viral infection, unspecified; R11.2 Nausea with vomiting, unspecified; R20.0 Anesthesia of skin; F12.10 Cannabis abuse, uncomplicated; Z79.1 Long term (current) use of non-steroidal anti-inflammatories (NSAID); Z79.899 Other long term (current) drug therapy; Z98.890 Other specified postprocedural states; Z91.013 Allergy to seafood
CPT/HCPCS: 36415; 71046; 80053; 80307; 81001; 83690; 83735; 84484; 85025; 93005; 93010; 96361; 96374; 99284; J2405; J7030

== ENCOUNTER 2020-09-04 10:06 | Emergency (ER) | payer MEDICAID ==
[2020-09-04 10:22] VITALS: BP 128/81
[2020-09-04] MEDS ORDERED: HYDROcodone/ACETAMINOPHEN 5-325 MG TAB PO ONE (11:11)
--- NOTE | 2020-09-04 11:11 | Emergency Department Report ---
ED Fever HPI - General Chief Complaint: Dental/Oral Stated Complaint: SWOLLEN JAW Time Seen by Provider: 09/04/20 11:03 - History of Present Illness Initial Comments: 30-year-old male otherwise healthy presenting for evaluation of left lower dental pain with facial swelling gradual onset over the past few days. Denies fevers, difficulty swallowing or any systemic symptoms. Severity is moderate nothing makes better or worse. ED Review of Systems ROS: Stated complaint: SWOLLEN JAW Other details as noted in HPI Comment: All other systems reviewed and negative ED Past Medical Hx - Past Medical History Previous Medical History?: No Hx Hypertension: No Hx CVA: No Hx Heart Attack/AMI: No Hx Congestive Heart Failure: No Hx Diabetes: No Hx Deep Vein Thrombosis: No Hx Pulmonary Embolism: No Hx GERD: No Hx Liver Disease: No Hx Renal Disease: No Hx Sickle Cell Disease: No Hx Arthritis: No Hx Headaches / Migraines: No Hx Seizures: No Hx Kidney Stones: No Hx Psychiatric Treatment: No Hx Asthma: No Hx COPD: No Hx Tuberculosis: No Hx Dementia: No Hx HIV: No - Surgical History Past Surgical History?: Yes Hx Coronary Stent: No Hx Open Heart Surgery: No Hx Pacemaker: No Hx Internal Defibrillator: No Hx Cholecystectomy: No Hx Appendectomy: No Hx Breast Surgery: No Additional Surgical History: right thumb surgery - Social History Smoking Status: Never Smoker Substance Use Type: Marijuana - Medications Home Medications: Home Medications Medication Instructions Recorded Confirmed Last Taken Type Clotrimazole [Clotrimazole AF] 1 applic TP BID #30 cream..g. 05/15/18 Unknown Rx Ibuprofen [Ibu] 800 mg PO Q8H PRN #20 tablet 05/15/18 Unknown Rx methOCARBAMOL [Robaxin TAB] 500 mg PO Q6H PRN #14 tablet 05/15/18 Unknown Rx Prochlorperazine [Compazine] 10 mg PO Q8HR #30 tablet 05/21/18 Unknown Rx Cyclobenzaprine [Flexeril] 10 mg PO TID PRN #30 tablet 06/01/18 Unknown Rx Menthol/Camphor [[place] 1 applicatio TP QID PRN #1 tube 06/01/18 Unknown Rx Ointment] Naproxen 500 mg PO BID PRN #30 tablet 06/01/18 Unknown Rx Cyclobenzaprine [Flexeril] 10 mg PO Q8H PRN #15 tablet 06/27/18 Unknown Rx Naproxen 500 mg PO Q12H PRN #20 tablet 06/27/18 Unknown Rx Ibuprofen [Motrin 800 MG tab] 800 mg PO Q8HR PRN #30 tablet 05/12/19 Unknown Rx Ondansetron [Zofran Odt] 4 mg PO Q8HR PRN #20 tab.rapdis 05/12/19 Unknown Rx Clindamycin [Clindamycin CAP] 450 mg PO Q8HR #90 capsule 09/04/20 Unknown Rx traMADoL [Ultram 50 MG tab] 50 mg PO Q6HR PRN #12 tablet 09/04/20 Unknown Rx ED Physical Exam - General Limitations: No Limitations General appearance: alert, in no apparent distress - Head Head exam: Present: atraumatic, normocephalic - Eye Eye exam: Present: normal appearance - ENT ENT exam: Present: mucous membranes moist, other (Grossly abnormal appearance to the remaining molar of the left lower jawline with associated mild swelling, no neck swelling, no trismus, no evidence of Lucas angina) - Neck Neck exam: Present: normal inspection - Respiratory Respiratory exam: Absent: respiratory distress - Rectal Rectal exam: Present: deferred - Extremities Exam Extremities exam: Present: normal inspection - Back Exam Back exam: Present: normal inspection - Neurological Exam Neurological exam: Present: alert, oriented X3 - Psychiatric Psychiatric exam: Present: normal affect, normal mood - Skin Skin exam: Present: warm, dry, intact, normal color. Absent: rash ED Course Vital Signs 09/04/20 10:22 Temperature 98.4 F Pulse Rate 68 Respiratory 18 Rate Blood Pressure 128/81 [Right] O2 Sat by Pulse 98 Oximetry ED Medical Decision Making - Medical Decision Making Patient presenting for evaluation of dental pain and facial swelling over the past few days. On my exam there is mild facial swelling noted adjacent to mamie edly abnormal appearing left lower molar. On exam no evidence of trismus, tolerating secretions, no Lucas angina. Will place on clindamycin, medicine for pain and refer to dentist for follow-up. - Differential Diagnosis Dental abscess Critical care attestation.: If time is entered above; I have spent that time in minutes in the direct care of this critically ill patient, excluding procedure time. ED Disposition Clinical Impression: Dental abscess Disposition: TO HOME OR SELFCARE Is pt being admited?: No Condition: Good Instructions: Dental Abscess Prescriptions: Clindamycin [Clindamycin CAP] 450 mg PO Q8HR #90 capsule traMADoL [Ultram 50 MG tab] 50 mg PO Q6HR PRN #12 tablet PRN Reason: Pain Referrals: PRIMARY CARE,MD [Primary Care Provider] - 3-5 Days Time of Disposition: 11:11
[2020-09-04] MEDS ORDERED: CLINDAMYCIN 150 MG CAP PO SCH (11:30)
== END 2020-09-04 12:06 | disposition home or self-care (01) ==
LOC: ED 10:06
DX: K04.7 Periapical abscess without sinus (principal); Z91.013 Allergy to seafood
CPT/HCPCS: 99282

== ENCOUNTER 2020-11-02 21:27 | Emergency (ER) | payer MEDICAID ==
--- NOTE | 2020-11-02 23:56 | Emergency Department Report ---
ED Male HPI - General Chief complaint: Urogenital-Male Stated complaint: STD CHECK Time Seen by Provider: 11/02/20 23:44 Source: patient Mode of arrival: Ambulatory Limitations: No Limitations - History of Present Illness Initial comments: 30-year-old male presents department complaining of penile discharge stating his he was brought by his girlfriend. Symptoms been present for the last 2 days and and discharge is an unknown, reports no fever, chills, sweats no abdominal pain no nausea no vomiting chest pain palpitations no fever chills sweats MD Complaint: penile discharge, dysuria Radiation: none Severity: mild Quality: burning Consistency: constant Worsens with: urination discharge. denies: swelling, mass, urinary retention, blood in urine, dysuria, nausea/vomiting, incontinence - Related Data Previous Rx's Medication Instructions Recorded Last Taken Type Clotrimazole [Clotrimazole AF] 1 applic TP BID #30 cream..g. 05/15/18 Unknown Rx Ibuprofen [Ibu] 800 mg PO Q8H PRN #20 tablet 05/15/18 Unknown Rx methOCARBAMOL [Robaxin TAB] 500 mg PO Q6H PRN #14 tablet 05/15/18 Unknown Rx Prochlorperazine [Compazine] 10 mg PO Q8HR #30 tablet 05/21/18 Unknown Rx Cyclobenzaprine [Flexeril] 10 mg PO TID PRN #30 tablet 06/01/18 Unknown Rx Menthol/Camphor [[place] 1 applicatio TP QID PRN #1 tube 06/01/18 Unknown Rx Ointment] Naproxen 500 mg PO BID PRN #30 tablet 06/01/18 Unknown Rx Cyclobenzaprine [Flexeril] 10 mg PO Q8H PRN #15 tablet 06/27/18 Unknown Rx Naproxen 500 mg PO Q12H PRN #20 tablet 06/27/18 Unknown Rx Ibuprofen [Motrin 800 MG tab] 800 mg PO Q8HR PRN #30 tablet 05/12/19 Unknown Rx Ondansetron [Zofran Odt] 4 mg PO Q8HR PRN #20 tab.rapdis 05/12/19 Unknown Rx Clindamycin [Clindamycin CAP] 450 mg PO Q8HR #90 capsule 09/04/20 Unknown Rx traMADoL [Ultram 50 MG tab] 50 mg PO Q6HR PRN #12 tablet 09/04/20 Unknown Rx Azithromycin [Zithromax TAB] 1,000 mg PO ONCE #2 tablet 11/02/20 Unknown Rx Cefixime [Suprax] 800 mg PO ONCE #2 capsule 11/02/20 Unknown Rx DOXYCYCLINE Hyclate [Vibramycin 100 mg PO BID #20 capsule 11/02/20 Unknown Rx CAP] metroNIDAZOLE [Flagyl] 2,000 mg PO ONCE #4 tablet 11/02/20 Unknown Rx Allergies Allergy/AdvReac Type Severity Reaction Status Date / Time shellfish derived Allergy Swelling Verified 04/17/18 04:20 ED Review of Systems ROS: Stated complaint: STD CHECK Other details as noted in HPI Comment: All other systems reviewed and negative ED Past Medical Hx - Past Medical History Previous Medical History?: No Hx Hypertension: No Hx CVA: No Hx Heart Attack/AMI: No Hx Congestive Heart Failure: No Hx Diabetes: No Hx Deep Vein Thrombosis: No Hx Pulmonary Embolism: No Hx GERD: No Hx Liver Disease: No Hx Renal Disease: No Hx Sickle Cell Disease: No Hx Arthritis: No Hx Headaches / Migraines: No Hx Seizures: No Hx Kidney Stones: No Hx Psychiatric Treatment: No Hx Asthma: No Hx COPD: No Hx Tuberculosis: No Hx Dementia: No Hx HIV: No - Surgical History Past Surgical History?: No Hx Coronary Stent: No Hx Open Heart Surgery: No Hx Pacemaker: No Hx Internal Defibrillator: No Hx Cholecystectomy: No Hx Appendectomy: No Hx Breast Surgery: No Additional Surgical History: right thumb surgery - Social History Smoking Status: Never Smoker Substance Use Type: Marijuana - Medications Home Medications: Home Medications Medication Instructions Recorded Confirmed Last Taken Type Clotrimazole [Clotrimazole AF] 1 applic TP BID #30 cream..g. 05/15/18 Unknown Rx Ibuprofen [Ibu] 800 mg PO Q8H PRN #20 tablet 05/15/18 Unknown Rx methOCARBAMOL [Robaxin TAB] 500 mg PO Q6H PRN #14 tablet 05/15/18 Unknown Rx Prochlorperazine [Compazine] 10 mg PO Q8HR #30 tablet 05/21/18 Unknown Rx Cyclobenzaprine [Flexeril] 10 mg PO TID PRN #30 tablet 06/01/18 Unknown Rx Menthol/Camphor [[place] 1 applicatio TP QID PRN #1 tube 06/01/18 Unknown Rx Ointment] Naproxen 500 mg PO BID PRN #30 tablet 06/01/18 Unknown Rx Cyclobenzaprine [Flexeril] 10 mg PO Q8H PRN #15 tablet 06/27/18 Unknown Rx Naproxen 500 mg PO Q12H PRN #20 tablet 06/27/18 Unknown Rx Ibuprofen [Motrin 800 MG tab] 800 mg PO Q8HR PRN #30 tablet 05/12/19 Unknown Rx Ondansetron [Zofran Odt] 4 mg PO Q8HR PRN #20 tab.rapdis 05/12/19 Unknown Rx Clindamycin [Clindamycin CAP] 450 mg PO Q8HR #90 capsule 09/04/20 Unknown Rx traMADoL [Ultram 50 MG tab] 50 mg PO Q6HR PRN #12 tablet 09/04/20 Unknown Rx Azithromycin [Zithromax TAB] 1,000 mg PO ONCE #2 tablet 11/02/20 Unknown Rx Cefixime [Suprax] 800 mg PO ONCE #2 capsule 11/02/20 Unknown Rx DOXYCYCLINE Hyclate [Vibramycin 100 mg PO BID #20 capsule 11/02/20 Unknown Rx CAP] metroNIDAZOLE [Flagyl] 2,000 mg PO ONCE #4 tablet 11/02/20 Unknown Rx ED Physical Exam - General Limitations: No Limitations General appearance: alert, in no apparent distress - Head Head exam: Present: atraumatic, normocephalic - Eye Eye exam: Present: normal appearance - ENT ENT exam: Present: mucous membranes moist - Neck Neck exam: Present: normal inspection - Respiratory Respiratory exam: Present: normal lung sounds bilaterally. Absent: respiratory distress - Cardiovascular Cardiovascular Exam: Present: regular rate, normal rhythm. Absent: systolic murmur, diastolic murmur, rubs, gallop - GI/Abdominal GI/Abdominal exam: Present: soft, normal bowel sounds. Absent: distended, tenderness, guarding, hyperactive bowel sounds, hypoactive bowel sounds - Rectal Rectal exam: Present: deferred - External exam: Present: other (No inguinal lymphadenopathy noted.) - Extremities Exam Extremities exam: Present: normal inspection - Back Exam Back exam: Present: normal inspection - Neurological Exam Neurological exam: Present: alert, oriented X3 - Psychiatric Psychiatric exam: Present: normal affect, normal mood - Skin Skin exam: Present: warm, dry, intact, normal color. Absent: rash Critical care attestation.: If time is entered above; I have spent that time in minutes in the direct care of this critically ill patient, excluding procedure time. ED Disposition Clinical Impression: Possible exposure to STD, Dysuria Disposition: HOME / SELF CARE / HOMELESS Is pt being admited?: No Does the pt Need Aspirin: No Condition: Stable Instructions: Dysuria, Safe Sex, Urodynamic Testing Referrals: [facility] Depart [Outside] - 3-5 Days
== END 2020-11-03 00:49 | disposition home or self-care (01) ==
LOC: ED 21:27
DX: R30.0 Dysuria (principal); R36.9 Urethral discharge, unspecified; Z20.2 Contact with and (suspected) exposure to infections with a predominantly sexual mode of transmission; F12.90 Cannabis use, unspecified, uncomplicated; Z91.013 Allergy to seafood; Z79.899 Other long term (current) drug therapy
CPT/HCPCS: 99281

== ENCOUNTER 2021-05-14 09:40 | Emergency (ER) | payer MEDICAID ==
[2021-05-14 09:58] VITALS: BP 134/76
[2021-05-14] MEDS ORDERED: KETOROLAC 10 MG TAB PO ONE (10:44)
[2021-05-14] MEDS ORDERED: CYCLOBENZAPRINE 10 MG TAB PO ONE (10:44)
[2021-05-14] MEDS ORDERED: DEXAMETHASONE 4 MG TAB PO ONE (10:44)
--- NOTE | 2021-05-14 11:09 | XRay Report ---
Left shoulder 3 views INDICATION: Pain FINDINGS: Glenohumeral joint and AC joint appear normal. No acute fracture or dislocation. IMPRESSION: No acute findings. Signer Name: Bao Escalante MD Signed: 05/14/2021 11:05 AM Workstation Name: [id number]
--- NOTE | 2021-05-14 11:51 | Emergency Department Report ---
ED Extremity Problem HPI - General Chief complaint: Extremity Problem,Nontraumatic Stated complaint: LT SHOULDER NUMBNESS Time Seen by Provider: 05/14/21 10:36 Source: patient Mode of arrival: Ambulatory Limitations: No Limitations - History of Present Illness Initial comments: 31-year-old black male with no past medical history presents to the emergency department for evaluation of left shoulder and neck pain that started yesterday. He states that he was moving concrete boulders yesterday and started having the pain after that. He denies injury or trauma. He states that pain is 9 out of 10 and consistent. MD Complaint: extremity pain -: Sudden Location: left, upper extremity History of Same: No -: No myalgia, No arthralgia, No fever, No associated dyspnea, No associated chest pain Severity scale (0 -10): 9 Quality: aching Consistency: constant Worsens with: palpation, other (Range of motion) Associated Symptoms: denies: chest pain, shortness of breath, fever, myalgias, arthralgias, rash - Related Data Previous Rx's Medication Instructions Recorded Last Taken Type Clotrimazole [Clotrimazole AF] 1 applic TP BID #30 cream..g. 05/15/18 Unknown Rx Ibuprofen [Ibu] 800 mg PO Q8H PRN #20 tablet 05/15/18 Unknown Rx methOCARBAMOL [Robaxin TAB] 500 mg PO Q6H PRN #14 tablet 05/15/18 Unknown Rx Prochlorperazine [Compazine] 10 mg PO Q8HR #30 tablet 05/21/18 Unknown Rx Cyclobenzaprine [Flexeril] 10 mg PO TID PRN #30 tablet 06/01/18 Unknown Rx Menthol/Camphor [[place] 1 applicatio TP QID PRN #1 tube 06/01/18 Unknown Rx Ointment] Naproxen 500 mg PO BID PRN #30 tablet 06/01/18 Unknown Rx Cyclobenzaprine [Flexeril] 10 mg PO Q8H PRN #15 tablet 06/27/18 Unknown Rx Naproxen 500 mg PO Q12H PRN #20 tablet 06/27/18 Unknown Rx Ibuprofen [Motrin 800 MG tab] 800 mg PO Q8HR PRN #30 tablet 05/12/19 Unknown Rx Ondansetron [Zofran Odt] 4 mg PO Q8HR PRN #20 tab.rapdis 05/12/19 Unknown Rx Clindamycin [Clindamycin CAP] 450 mg PO Q8HR #90 capsule 09/04/20 Unknown Rx traMADoL [Ultram 50 MG tab] 50 mg PO Q6HR PRN #12 tablet 09/04/20 Unknown Rx Azithromycin [Zithromax TAB] 1,000 mg PO ONCE #2 tablet 11/02/20 Unknown Rx Cefixime [Suprax] 800 mg PO ONCE #2 capsule 11/02/20 Unknown Rx DOXYCYCLINE Hyclate [Vibramycin 100 mg PO BID #20 capsule 11/02/20 Unknown Rx CAP] metroNIDAZOLE [Flagyl] 2,000 mg PO ONCE #4 tablet 11/02/20 Unknown Rx Cyclobenzaprine [Flexeril] 10 mg PO TID PRN #21 tab 05/14/21 Unknown Rx Lidocaine [Lidoderm] 1 each TP DAILY #10 patch 05/14/21 Unknown Rx Naproxen [Naprosyn] 500 mg PO BID #14 tab 05/14/21 Unknown Rx Allergies Allergy/AdvReac Type Severity Reaction Status Date / Time shellfish derived Allergy Swelling Verified 04/17/18 04:20 ED Review of Systems ROS: Stated complaint: LT SHOULDER NUMBNESS Other details as noted in HPI Comment: All other systems reviewed and negative Constitutional: denies: chills, fever Respiratory: denies: shortness of breath Cardiovascular: denies: chest pain, palpitations, dyspnea on exertion Gastrointestinal: denies: abdominal pain, nausea, vomiting Musculoskeletal: denies: back pain, joint swelling, myalgia Neurological: denies: headache, weakness, numbness, paresthesias ED Past Medical Hx - Past Medical History Hx Hypertension: No Hx CVA: No Hx Heart Attack/AMI: No Hx Congestive Heart Failure: No Hx Diabetes: No Hx Deep Vein Thrombosis: No Hx Pulmonary Embolism: No Hx GERD: No Hx Liver Disease: No Hx Renal Disease: No Hx Sickle Cell Disease: No Hx Arthritis: No Hx Headaches / Migraines: No Hx Seizures: No Hx Kidney Stones: No Hx Psychiatric Treatment: No Hx Asthma: No Hx COPD: No Hx Tuberculosis: No Hx Dementia: No Hx HIV: No - Surgical History Hx Coronary Stent: No Hx Open Heart Surgery: No Hx Pacemaker: No Hx Internal Defibrillator: No Hx Cholecystectomy: No Hx Appendectomy: No Hx Breast Surgery: No Additional Surgical History: right thumb surgery - Social History Smoking Status: Never Smoker Substance Use Type: Marijuana - Medications Home Medications: Home Medications Medication Instructions Recorded Confirmed Last Taken Type Clotrimazole [Clotrimazole AF] 1 applic TP BID #30 cream..g. 05/15/18 Unknown Rx Ibuprofen [Ibu] 800 mg PO Q8H PRN #20 tablet 05/15/18 Unknown Rx methOCARBAMOL [Robaxin TAB] 500 mg PO Q6H PRN #14 tablet 05/15/18 Unknown Rx Prochlorperazine [Compazine] 10 mg PO Q8HR #30 tablet 05/21/18 Unknown Rx Cyclobenzaprine [Flexeril] 10 mg PO TID PRN #30 tablet 06/01/18 Unknown Rx Menthol/Camphor [[place] 1 applicatio TP QID PRN #1 tube 06/01/18 Unknown Rx Ointment] Naproxen 500 mg PO BID PRN #30 tablet 06/01/18 Unknown Rx Cyclobenzaprine [Flexeril] 10 mg PO Q8H PRN #15 tablet 06/27/18 Unknown Rx Naproxen 500 mg PO Q12H PRN #20 tablet 06/27/18 Unknown Rx Ibuprofen [Motrin 800 MG tab] 800 mg PO Q8HR PRN #30 tablet 05/12/19 Unknown Rx Ondansetron [Zofran Odt] 4 mg PO Q8HR PRN #20 tab.rapdis 05/12/19 Unknown Rx Clindamycin [Clindamycin CAP] 450 mg PO Q8HR #90 capsule 09/04/20 Unknown Rx traMADoL [Ultram 50 MG tab] 50 mg PO Q6HR PRN #12 tablet 09/04/20 Unknown Rx Azithromycin [Zithromax TAB] 1,000 mg PO ONCE #2 tablet 11/02/20 Unknown Rx Cefixime [Suprax] 800 mg PO ONCE #2 capsule 11/02/20 Unknown Rx DOXYCYCLINE Hyclate [Vibramycin 100 mg PO BID #20 capsule 11/02/20 Unknown Rx CAP] metroNIDAZOLE [Flagyl] 2,000 mg PO ONCE #4 tablet 11/02/20 Unknown Rx Cyclobenzaprine [Flexeril] 10 mg PO TID PRN #21 tab 05/14/21 Unknown Rx Lidocaine [Lidoderm] 1 each TP DAILY #10 patch 05/14/21 Unknown Rx Naproxen [Naprosyn] 500 mg PO BID #14 tab 05/14/21 Unknown Rx ED Physical Exam - General Limitations: No Limitations General appearance: alert, in no apparent distress - Head Head exam: Present: atraumatic, normocephalic - Eye Eye exam: Present: normal appearance. Absent: conjunctival injection - Neck Neck exam: Present: normal inspection, tenderness (Left side only, no midline vertebral tenderness) - Respiratory Respiratory exam: Present: normal lung sounds bilaterally. Absent: respiratory distress - Cardiovascular Cardiovascular Exam: Present: regular rate, normal heart sounds - GI/Abdominal GI/Abdominal exam: Present: soft, normal bowel sounds. Absent: distended, tenderness, guarding, rebound, rigid - Extremities Exam Extremities exam: Present: normal inspection - Expanded Upper Extremity Exam Left Shoulder Exam: Present: normal inspection, tenderness, tenderness over AC joint. Absent: full ROM, swelling, abrasion, laceration, ecchymosis, deformity, crepidus, dislocation, erythema Upper Arm exam: Present: normal inspection Vascular: Present: normal capillary refill. Absent: vascular compromise, pulse deficit radial art - Back Exam Back exam: Present: normal inspection - Neurological Exam Neurological exam: Present: alert, oriented X3 - Psychiatric Psychiatric exam: Present: normal affect, normal mood - Skin Skin exam: Present: warm, dry, intact, normal color ED Course Vital Signs 05/14/21 09:56 Temperature 98.3 F Pulse Rate 73 Respiratory 18 Rate Blood Pressure 134/76 O2 Sat by Pulse 98 Oximetry ED Medical Decision Making - Radiology Data Radiology results: report reviewed, image reviewed Left shoulder x-ray: FINDINGS: Glenohumeral joint and AC joint appear normal. No acute fracture or dislocation. IMPRESSION: No acute findings. - Medical Decision Making 31-year-old black male with no past medical history presents to the emergency department for evaluation of left shoulder and neck pain that started yesterday. He states that he was moving concrete boulders yesterday and started having the pain after that. He denies injury or trauma. He states that pain is 9 out of 10 and consistent Left shoulder x-ray without any acute abnormalities noted. Patient denies chest pain, shortness of breath, dizziness, and diaphoresis and will be treated for musculoskeletal left shoulder pain with anti-inflammatories, muscle relaxants, and lidocaine patches. He was advised to take medications as prescribed and follow-up with his primary care provider if no improvement or worsening symptoms. He verbalized understanding of and agreement with plan of care. Critical care attestation.: If time is entered above; I have spent that time in minutes in the direct care of this critically ill patient, excluding procedure time. ED Disposition Clinical Impression: Left shoulder pain Qualifiers: Chronicity: acute Qualified Code(s): M25.512 - Pain in left shoulder Disposition: HOME / SELF CARE / HOMELESS Is pt being admited?: No Does the pt Need Aspirin: No Condition: Stable Instructions: How to Use Cold Therapy, [id number], Shoulder Pain, [id number], Musculoskeletal Pain Additional Instructions: Take medications as prescribed. Follow-up with primary care provider if no improvement or worsening symptoms. Prescriptions: Cyclobenzaprine [Flexeril] 10 mg PO TID PRN #21 tab PRN Reason: Muscle Spasm Lidocaine [Lidoderm] 1 each TP DAILY #10 patch Naproxen [Naprosyn] 500 mg PO BID #14 tab Referrals: SAULO CORONADO MD [Referring] - 3-5 Days JAKE DREW MD [Staff Physician] - 3-5 Days Time of Disposition: 11:51
== END 2021-05-14 12:29 | disposition home or self-care (01) ==
LOC: ED 09:40
DX: M25.512 Pain in left shoulder (principal); M54.2 Cervicalgia; F12.90 Cannabis use, unspecified, uncomplicated; Z79.899 Other long term (current) drug therapy
CPT/HCPCS: 73030; 99283; J8540

== ENCOUNTER 2021-07-22 13:38 | Emergency (ER) | payer MEDICAID ==
[2021-07-22 13:59] VITALS: BP 119/80
--- NOTE | 2021-07-22 15:56 | Emergency Department Report ---
ED Extremity Problem HPI - General Chief complaint: Extremity Injury, Upper Stated complaint: CHEST PAIN Source: patient, EMS Mode of arrival: Ambulatory Limitations: No Limitations - History of Present Illness Initial comments: Patient is a 31-year-old -[place] male with no past medical history presents to the ED with complaint of acute onset persistent left shoulder pain that radiates to the left hand and left forearm for the last 2 months after heavy lifting at home 2 months ago. Patient states that the pain has been persistent and intermittent but in the last 2 days the pains are getting worse now radiating to the distal left, mid posterior thoracic area and anterior left chest wall with tingling sensation in his fingers. Patient denies dizziness, syncope, nausea and vomiting, palpitations, shortness of breath, fall, traumatic injury, back pain, headache, change in vision or abdominal pain. MD Complaint: extremity pain (left shoulder), joint paint (Left shoulder pain, tingling sensation on left hand), other (Left lateral neck pain) -: Sudden, month(s) (2) Location: left, upper extremity (Shoulder and hand pain with tingling sensation) History of Same: Yes (Yes) -: Yes arthralgia (Left lateral neck pain, left shoulder pain), No fever, No associated dyspnea Radiation: distal Severity scale (0 -10): 6 Quality: aching, sharp Consistency: constant Improves with: nothing Worsens with: walking, exertion, palpation Associated Symptoms: denies other symptoms, arthralgias (Left lateral neck pain, left shoulder pain). denies: chest pain, shortness of breath, fever, myalgias - Related Data Previous Rx's Medication Instructions Recorded Last Taken Type Clotrimazole [Clotrimazole AF] 1 applic TP BID #30 cream..g. 05/15/18 Unknown Rx Ibuprofen [Ibu] 800 mg PO Q8H PRN #20 tablet 05/15/18 Unknown Rx Prochlorperazine [Compazine] 10 mg PO Q8HR #30 tablet 05/21/18 Unknown Rx Cyclobenzaprine [Flexeril] 10 mg PO TID PRN #30 tablet 06/01/18 Unknown Rx Menthol/Camphor [[place] 1 applicatio TP QID PRN #1 tube 06/01/18 Unknown Rx Ointment] Naproxen 500 mg PO BID PRN #30 tablet 06/01/18 Unknown Rx Cyclobenzaprine [Flexeril] 10 mg PO Q8H PRN #15 tablet 06/27/18 Unknown Rx Naproxen 500 mg PO Q12H PRN #20 tablet 06/27/18 Unknown Rx Ondansetron [Zofran Odt] 4 mg PO Q8HR PRN #20 tab.rapdis 05/12/19 Unknown Rx Clindamycin [Clindamycin CAP] 450 mg PO Q8HR #90 capsule 09/04/20 Unknown Rx traMADoL [Ultram 50 MG tab] 50 mg PO Q6HR PRN #12 tablet 09/04/20 Unknown Rx Azithromycin [Zithromax TAB] 1,000 mg PO ONCE #2 tablet 11/02/20 Unknown Rx Cefixime [Suprax] 800 mg PO ONCE #2 capsule 11/02/20 Unknown Rx DOXYCYCLINE Hyclate [Vibramycin 100 mg PO BID #20 capsule 11/02/20 Unknown Rx CAP] metroNIDAZOLE [Flagyl] 2,000 mg PO ONCE #4 tablet 11/02/20 Unknown Rx Cyclobenzaprine [Flexeril] 10 mg PO TID PRN #21 tab 05/14/21 Unknown Rx Lidocaine [Lidoderm] 1 each TP DAILY #10 patch 05/14/21 Unknown Rx Naproxen [Naprosyn] 500 mg PO BID #14 tab 05/14/21 Unknown Rx Gabapentin 300 mg PO BID #20 cap 07/22/21 Unknown Rx Ibuprofen [Motrin 800 MG tab] 800 mg PO Q8HR PRN #30 tablet 07/22/21 Unknown Rx methOCARBAMOL [Robaxin TAB] 500 mg PO Q8H PRN #24 tablet 07/22/21 Unknown Rx predniSONE [Deltasone] 40 mg PO QDAY #12 tab 07/22/21 Unknown Rx Allergies Allergy/AdvReac Type Severity Reaction Status Date / Time shellfish derived Allergy Swelling Verified 04/17/18 04:20 ED Review of Systems ROS: Stated complaint: CHEST PAIN Other details as noted in HPI Constitutional: denies: chills, fever Eyes: denies: eye pain, eye discharge, vision change ENT: denies: ear pain, throat pain Respiratory: denies: cough, shortness of breath, wheezing Cardiovascular: denies: chest pain, palpitations Endocrine: no symptoms reported Gastrointestinal: denies: abdominal pain, nausea, vomiting, diarrhea Genitourinary: denies: urgency, dysuria Musculoskeletal: arthralgia (Left shoulder pain), other (Left lateral neck pain). denies: back pain, joint swelling Skin: denies: rash, lesions Neurological: denies: headache, weakness, paresthesias Psychiatric: denies: anxiety, depression Hematological/Lymphatic: denies: easy bleeding, easy bruising ED Past Medical Hx - Past Medical History Hx Hypertension: No Hx CVA: No Hx Heart Attack/AMI: No Hx Congestive Heart Failure: No Hx Diabetes: No Hx Deep Vein Thrombosis: No Hx Pulmonary Embolism: No Hx GERD: No Hx Liver Disease: No Hx Renal Disease: No Hx Sickle Cell Disease: No Hx Arthritis: No Hx Headaches / Migraines: No Hx Seizures: No Hx Kidney Stones: No Hx Psychiatric Treatment: No Hx Asthma: No Hx COPD: No Hx Tuberculosis: No Hx Dementia: No Hx HIV: No - Surgical History Hx Coronary Stent: No Hx Open Heart Surgery: No Hx Pacemaker: No Hx Internal Defibrillator: No Hx Cholecystectomy: No Hx Appendectomy: No Hx Breast Surgery: No Additional Surgical History: right thumb surgery - Social History Smoking Status: Never Smoker Substance Use Type: Marijuana - Medications Home Medications: Home Medications Medication Instructions Recorded Confirmed Last Taken Type Clotrimazole [Clotrimazole AF] 1 applic TP BID #30 cream..g. 05/15/18 Unknown Rx Ibuprofen [Ibu] 800 mg PO Q8H PRN #20 tablet 05/15/18 Unknown Rx Prochlorperazine [Compazine] 10 mg PO Q8HR #30 tablet 05/21/18 Unknown Rx Cyclobenzaprine [Flexeril] 10 mg PO TID PRN #30 tablet 06/01/18 Unknown Rx Menthol/Camphor [[place] 1 applicatio TP QID PRN #1 tube 06/01/18 Unknown Rx Ointment] Naproxen 500 mg PO BID PRN #30 tablet 06/01/18 Unknown Rx Cyclobenzaprine [Flexeril] 10 mg PO Q8H PRN #15 tablet 06/27/18 Unknown Rx Naproxen 500 mg PO Q12H PRN #20 tablet 06/27/18 Unknown Rx Ondansetron [Zofran Odt] 4 mg PO Q8HR PRN #20 tab.rapdis 05/12/19 Unknown Rx Clindamycin [Clindamycin CAP] 450 mg PO Q8HR #90 capsule 09/04/20 Unknown Rx traMADoL [Ultram 50 MG tab] 50 mg PO Q6HR PRN #12 tablet 09/04/20 Unknown Rx Azithromycin [Zithromax TAB] 1,000 mg PO ONCE #2 tablet 11/02/20 Unknown Rx Cefixime [Suprax] 800 mg PO ONCE #2 capsule 11/02/20 Unknown Rx DOXYCYCLINE Hyclate [Vibramycin 100 mg PO BID #20 capsule 11/02/20 Unknown Rx CAP] metroNIDAZOLE [Flagyl] 2,000 mg PO ONCE #4 tablet 11/02/20 Unknown Rx Cyclobenzaprine [Flexeril] 10 mg PO TID PRN #21 tab 05/14/21 Unknown Rx Lidocaine [Lidoderm] 1 each TP DAILY #10 patch 05/14/21 Unknown Rx Naproxen [Naprosyn] 500 mg PO BID #14 tab 05/14/21 Unknown Rx Gabapentin 300 mg PO BID #20 cap 07/22/21 Unknown Rx Ibuprofen [Motrin 800 MG tab] 800 mg PO Q8HR PRN #30 tablet 07/22/21 Unknown Rx methOCARBAMOL [Robaxin TAB] 500 mg PO Q8H PRN #24 tablet 07/22/21 Unknown Rx predniSONE [Deltasone] 40 mg PO QDAY #12 tab 07/22/21 Unknown Rx ED Physical Exam - General Limitations: No Limitations General appearance: alert, in no apparent distress - Head Head exam: Present: atraumatic, normocephalic, normal inspection - Eye Eye exam: Present: normal appearance, PERRL, EOMI Pupils: Present: normal accommodation - ENT ENT exam: Present: normal exam, normal orophraynx, mucous membranes moist, TM's normal bilaterally, normal external ear exam - Neck Neck exam: Present: normal inspection, tenderness (Palpable left lateral cervical musculoskeletal tenderness), full ROM - Respiratory Respiratory exam: Present: normal lung sounds bilaterally. Absent: respiratory distress, wheezes, rales, rhonchi, chest wall tenderness, accessory muscle use, decreased breath sounds, prolonged expiratory - Cardiovascular Cardiovascular Exam: Present: regular rate, normal rhythm, normal heart sounds. Absent: systolic murmur, diastolic murmur, rubs, gallop - GI/Abdominal GI/Abdominal exam: Present: soft, normal bowel sounds. Absent: tenderness, guarding, hyperactive bowel sounds, hypoactive bowel sounds, organomegaly, mass, bruit - Extremities Exam Extremities exam: Present: normal inspection, full ROM, tenderness (Palpable left shoulder tenderness), normal capillary refill. Absent: pedal edema, joint swelling, calf tenderness - Back Exam Back exam: Present: normal inspection, full ROM. Absent: tenderness, CVA tenderness (R), CVA tenderness (L), muscle spasm, paraspinal tenderness, vertebral tenderness - Neurological Exam Neurological exam: Present: alert, oriented X3, CN II-XII intact, normal gait, reflexes normal - Psychiatric Psychiatric exam: Present: normal affect, normal mood - Skin Skin exam: Present: warm, dry, intact, normal color. Absent: rash ED Course Vital Signs 07/22/21 13:57 Temperature 98.6 F Pulse Rate 86 Respiratory 16 Rate Blood Pressure 119/80 [Left] O2 Sat by Pulse 98 Oximetry ED Medical Decision Making - Medical Decision Making This is a 31-year-old -[place] male with no past medical history presents to the ED with complaint of acute onset persistent left shoulder pain that radiates to the left hand and left forearm for the last 2 months after heavy lifting at home 2 months ago. Patient states that the pain has been persistent and intermittent but in the last 2 days the pains are getting worse now radiating to the distal left, mid posterior thoracic area and anterior left chest wall with tingling sensation in his fingers. In the ED, patient is alert and oriented x3 and is not in any distress. Patient is hemodynamically stable. Patient is eating dinner during the physical exam and in no distress. Based on the history and physical exam findings, the patient was discharged home on pain medications for suspected cervical radiculopathy and left shoulder bursitis. Patient was advised to follow-up with his primary care physician in 7 to 10 days for reevaluation or return to the ED immediately if symptoms get worse. - Differential Diagnosis Cervical radiculopathy; shoulder bursitis; muscle strain; shoulder tendinit Critical care attestation.: If time is entered above; I have spent that time in minutes in the direct care of this critically ill patient, excluding procedure time. ED Disposition Clinical Impression: Left anterior shoulder pain, Left cervical radiculopathy, Left shoulder tendonitis Disposition: HOME / SELF CARE / HOMELESS Is pt being admited?: No Does the pt Need Aspirin: No Condition: Stable Instructions: Bursitis, Shoulder Pain, [id number], Musculoskeletal Pain, Cervical Radiculopathy, [id number], Joint Pain, [id number] Additional Instructions: Your symptoms are due to cervical radiculopathy as well as left shoulder bursitis following heavy lifting 2 months ago. Therefore take medication with food, drink plenty of fluids, follow-up with your primary care physician in 7 to 10 days for reevaluation. Return to the ED immediately if symptoms get worse. Prescriptions: predniSONE [Deltasone] 40 mg PO QDAY #12 tab Gabapentin 300 mg PO BID #20 cap Ibuprofen [Motrin 800 MG tab] 800 mg PO Q8HR PRN #30 tablet PRN Reason: Pain , Severe (7-10) methOCARBAMOL [Robaxin TAB] 500 mg PO Q8H PRN #24 tablet PRN Reason: Muscle Spasm Referrals: [facility] [place] [Provider Group] - 7-10 days Time of Disposition: 15:54 Print Language: DANISH
== END 2021-07-22 15:30 | disposition home or self-care (01) ==
LOC: ED 13:38
DX: M25.512 Pain in left shoulder (principal); M54.12 Radiculopathy, cervical region; M75.82 Other shoulder lesions, left shoulder
CPT/HCPCS: 99283

== ENCOUNTER 2021-07-23 16:47 | Emergency (ER) | payer MEDICAID ==
[2021-07-23 17:31] VITALS: BP 121/70
== END 2021-07-24 14:53 ==
LOC: ED 16:47
DX: M25.512 Pain in left shoulder (principal); Z53.21 Procedure and treatment not carried out due to patient leaving prior to being seen by health care provider

== ENCOUNTER 2021-08-29 23:17 | Emergency (ER) | payer MEDICAID ==
[2021-08-30 00:02] VITALS: BP 112/69
== END 2021-08-30 03:00 | disposition left against medical advice (07) ==
LOC: ED 23:17
DX: M25.512 Pain in left shoulder (principal); Z53.21 Procedure and treatment not carried out due to patient leaving prior to being seen by health care provider